=== PATIENT | female | born 1980 ===

== ENCOUNTER 2024-06-23 11:08 | Outpatient (AMB) | payer BC, SELFPAY ==
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
== END 2024-06-23 12:00 | disposition home or self-care (01) ==
PROVIDERS: Visit Provider Counselor Mental Health
DX: F43.22 Adjustment disorder with anxiety (principal); Z63.0 Problems in relationship with spouse or partner
CPT/HCPCS: 90791

== ENCOUNTER → 2024-06-23 11:08 | Outpatient (BNVA) | payer BC, SELFPAY | PROVIDERS: Visit Provider Counselor Mental Health ==

== ENCOUNTER 2024-06-29 10:31 | Outpatient (AMB) | payer BC, SELFPAY ==
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
--- NOTE | 2024-06-29 10:35 | MHC.OFFVISPS ---
Intake Intake Visit Reasons: (VIDEO) OP Therapy HPI- Psychiatric Chief Complaint: (VIDEO) OP Therapy Assessment and Plan Counseling and coordination of Care Details: I spent [] minutes reviewing the record, seeing the patient and documenting in the medical record. Counseling provided to the patient/caregiver as outlined below. Addressed patient/caregiver concerns regarding current medication regime including effective adherence. Addressed patient/caregiver concerns regarding diagnosis and prognosis including accuracy of diagnosis, prognosis over time, impact of diagnosis. Addressed patient/caregiver concerns regarding impact of recent stressors. Coding
== END 2024-06-29 11:00 | disposition home or self-care (01) ==
LOC: HO.HOP 10:31
PROVIDERS: Visit Provider Counselor Mental Health
DX: F43.22 Adjustment disorder with anxiety (principal); Z63.0 Problems in relationship with spouse or partner
CPT/HCPCS: 90837

== ENCOUNTER → 2024-06-29 10:31 | Outpatient (BNVA) | payer BC, SELFPAY | PROVIDERS: Visit Provider Counselor Mental Health ==

== ENCOUNTER 2024-07-13 10:14 | Outpatient (AMB) | payer BC, SELFPAY ==
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
== END 2024-07-13 11:00 | disposition home or self-care (01) ==
LOC: HO.HOP 10:14
PROVIDERS: Visit Provider Counselor Mental Health
DX: F43.22 Adjustment disorder with anxiety (principal); Z63.0 Problems in relationship with spouse or partner
CPT/HCPCS: 90837

== ENCOUNTER → 2024-07-13 10:14 | Outpatient (BNVA) | payer BC, SELFPAY | PROVIDERS: Visit Provider Counselor Mental Health ==

== ENCOUNTER → 2024-07-21 12:09 | Outpatient (AMB) | payer BC, SELFPAY ==
--- NOTE | 2024-07-21 12:10 | A.OFFWM_ITS ---
Intake Intake Visit Reasons: (OV) OP Therapy Behavioral Health Assessment Weight Management Therapy Therapy Notes Details Subjective: PT reports some anxiety symptoms but functioning well. Objective: PT presents for a follow up visit in person. Processed functioning and sources of stress. PT provided updates about separation process. Worked on grief and feelings triggered by ongoing family issues. Used CBT, CPT for Sx management and learning to cope with changes on her family. completed mindfulness Assessment/Response: * Mental status: anxious. sleep disturbance. Alert, oriented X3, engaged. * Risk reported/identified:None reported. PT open and active. She responded well to interventions. Assessment & Plan Assessment & Plan (1) Adjustment disorder with anxiety: Code(s): F43.22 - Adjustment disorder with anxiety (2) Problems in relationship with spouse or partner: Code(s): Z63.0 - Problems in relationship with spouse or partner Plan Follow up in 2 weeks in person. Advised to use stress-relief exercises and start working towards a soothing bedtime routine and possibly start using a gratitude journal or listening to a gratitude mindful meditation 2 times at day. Next christiano: 08/04/2024 - In person. Coding Level of Care Code Established Pt Psytx >53 mins (04177) Patient Type Established Diagnoses Adjustment disorder with anxiety F43.22 Problems in relationship with spouse or partner Z63.0 Time Spent (min) 60 Comment
== END ==
PROVIDERS: Visit Provider Counselor Mental Health
DX: F43.22 Adjustment disorder with anxiety (principal); Z63.0 Problems in relationship with spouse or partner
CPT/HCPCS: 90837

== ENCOUNTER → 2024-07-21 12:09 | Outpatient (BNVA) | payer BC, SELFPAY | PROVIDERS: Visit Provider Counselor Mental Health ==

== ENCOUNTER 2024-08-04 12:57 | Outpatient (AMB) | payer BC, SELFPAY ==
--- NOTE | 2024-08-04 12:00 | MHC.WMTHER ---
Intake Intake Visit Reasons: VIDEO OP Therapy Behavioral Health Assessment Weight Management Therapy Therapy Notes Details Subjective: PT reports she has been stressed but no significant changes have occur at home. Objective: PT presents for a follow up visit via Telehealth. Active listening, processed some of her concerns and used CBT-based techniques for Sx management. Session lasted 30 minutes total as we had several connection issues. Assessment/Response: Mental status: Anxious. Risk reported/identified: None PT was active and engaged in session. Plan: follow up in 2 weeks. Assessment & Plan Assessment & Plan (1) Adjustment disorder with anxiety: Code(s): F43.22 - Adjustment disorder with anxiety (2) Problems in relationship with spouse or partner: Code(s): Z63.0 - Problems in relationship with spouse or partner Plan Follow up in 2 weeks. Telehealth [facility] Location of provider rendering services: other Location of patient: address on file Patient Identification confirmed using: Name, : Yes Telehealth method: video Patient verbally consented to treatment: Yes Patient verbally consented to billing insurance company: Yes Patient informed of any privacy concerns related to visit: Yes Minutes spent on Phone/Video with Pt.: 30 Coding Level of Care Code Established Pt Tele Psytx 30 mins ([id number]) Patient Type Established Diagnoses Adjustment disorder with anxiety F43.22 Problems in relationship with spouse or partner Z63.0 Time Spent (min) 30
== END 2024-08-04 13:00 | disposition home or self-care (01) ==
LOC: HO.HOP 12:57
PROVIDERS: Visit Provider Counselor Mental Health
DX: F43.22 Adjustment disorder with anxiety (principal); Z63.0 Problems in relationship with spouse or partner
CPT/HCPCS: 90832

== ENCOUNTER → 2024-08-04 12:57 | Outpatient (BNVA) | payer BC, SELFPAY | PROVIDERS: Visit Provider Counselor Mental Health ==

== ENCOUNTER → 2024-08-18 13:49 | Outpatient (BNVA) | payer BC, SELFPAY | PROVIDERS: Visit Provider Counselor Mental Health ==

== ENCOUNTER → 2024-08-18 13:49 | Outpatient (AMB) | payer BC, SELFPAY ==
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
== END ==
LOC: HO.HOP 13:49
PROVIDERS: Visit Provider Counselor Mental Health
DX: F43.22 Adjustment disorder with anxiety (principal); Z63.0 Problems in relationship with spouse or partner
CPT/HCPCS: 90837

== ENCOUNTER → 2024-09-01 11:35 | Outpatient (AMB) | payer BC, SELFPAY ==
--- NOTE | 2024-09-01 12:00 | A.OFFWM_ITS ---
Intake Intake Visit Reasons: (OV) OP Therapy Behavioral Health Assessment Weight Management Therapy Therapy Notes Details Subjective: * Patient presents feeling somehow sad about her ongoing separation process. * Despite these feelings, the patient expresses awareness that the separation is ultimately the best decision for her. * She reports mixed emotions: sadness related to the end of the relationship, but also a sense of relief and clarity about the decision. Objective: PT presents for an follow up visit in-person. Patient appears engaged, though slightly downcast. Speech is clear and coherent, and she remains alert and oriented. No signs of acute distress, though some emotional discomfort is evident. Used Cognitive Behavioral Therapy (CBT) to explore the patient?s emotional responses and cognitive patterns regarding the separation. Explored coping strategies for managing emotional distress related to future transitions. Assessment/Response: * Mental status: Mild sadness with moderate emotional insight. The patient demonstrates an awareness of the benefits of the decision, despite emotional discomfort. * Risk reported/identified: None The patient is processing the separation with a balanced perspective, understanding the necessity of the decision but still feeling sadness related to the loss. Plan: Continue using CBT to challenge any unhelpful thoughts and cognitive distortions related to the separation. Focus on reframing sadness, validating the patient's emotions, and reinforcing her awareness of the positive aspects of her decision. Assessment & Plan Assessment & Plan (1) Adjustment disorder with anxiety: Code(s): F43.22 - Adjustment disorder with anxiety (2) Problems in relationship with spouse or partner: Code(s): Z63.0 - Problems in relationship with spouse or partner Plan Follow up in 2 weeks. Next christiano 09/15/2024 in person. Coding Level of Care Code Established Pt Psytx >53 mins ([id number]) Patient Type Established Diagnoses Adjustment disorder with anxiety F43.22 Problems in relationship with spouse or partner Z63.0 Time Spent (min) 60
== END ==
PROVIDERS: Visit Provider Counselor Mental Health
DX: F43.22 Adjustment disorder with anxiety (principal); Z63.0 Problems in relationship with spouse or partner
CPT/HCPCS: 90837

== ENCOUNTER → 2024-09-15 11:22 | Outpatient (BNVA) | payer BC, SELFPAY | PROVIDERS: Visit Provider Counselor Mental Health ==

== ENCOUNTER → 2024-09-15 11:22 | Outpatient (AMB) | payer BC, SELFPAY ==
--- NOTE | 2024-09-15 11:23 | A.OFFWM_ITS ---
Intake Intake Visit Reasons: (OV) OP Therapy Behavioral Health Assessment Weight Management Therapy Therapy Notes Details Subjective: Client reports ongoing tension with her partner as he attempts to buy her forgiveness through gifts. She feels these gestures are insufficient, focusing on material rather than emotional repair. Despite occasional confusion, the client remains committed to . She expresses feelings of being blamed and isolated, particularly in navigating the separation alone. The client also mentioned two significant events involving her 's family and her son overhearing a conversation about the separation, which have added to her emotional distress. Objective: The client presented for a follow-up visit in person. Active listening was utilized to discuss recent triggering events, her responses, and explore ways to cope more effectively. Feelings were validated and normalized. Cognitive Processing Therapy (CPT) techniques were employed to develop a coping plan. The client was encouraged to utilize natural supports and worked on enhancing communication skills to set boundaries with her and his family. Journaling or other self-reflective exercises were recommended to help the client stay connected to her own feelings. Coping strategies for managing doubts were also discussed. The client was provided with information about a family counseling practice that specializes in managing divorce-related challenges and delivering news to children, with a focus on working with the whole family. Assessment/Response: * Mental status: Client appears emotionally exhausted, with clear signs of distress related to ongoing relational issues. * Risk reported/identified: None The client continues to experience significant emotional strain due to relational conflict, feelings of isolation, and external pressures, especially involving her partner?s family and her son's reactions. Despite this, the client remains firm in her decision to separate. Occasional confusion appears linked to emotional fatigue and external stressors, including her partner's material attempts at reconciliation. Plan: -Continue using CPT to support coping st rategies and emotional processing. -Encourage regular journaling or self-re flection exercises. -Support development of stronger communi cation and boundary-setting skills. -Monitor emotional state and stress leve ls, especially regarding family dynamics. -Follow-up on the potential use of famil y counseling to help address divorce- related issues and facilitate communication with her children. Assessment & Plan Assessment & Plan (1) Adjustment disorder with anxiety: Code(s): F43.22 - Adjustment disorder with anxiety (2) Problems in relationship with spouse or partner: Code(s): Z63.0 - Problems in relationship with spouse or partner Plan Continue meeting on a bi-weekly basis. Sooner visits are available and have been offered to the client if needed. Next Appointment: 09/29/2024 at 11:00 AM, in person. Coding Level of Care Code Established Pt Tele Psytx 45 mins ([id number]) Patient Type Established Diagnoses Adjustment disorder with anxiety F43.22 Problems in relationship with spouse or partner Z63.0 Time Spent (min) 45 Comment Start: 11:22 am, End time:12:07
== END ==
LOC: HO.HOP 11:22
PROVIDERS: Visit Provider Counselor Mental Health
DX: F43.22 Adjustment disorder with anxiety (principal); Z63.0 Problems in relationship with spouse or partner
CPT/HCPCS: 90834

== ENCOUNTER 2024-09-29 11:35 | Outpatient (AMB) | payer BC, SELFPAY ==
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
== END 2024-09-29 15:01 | disposition home or self-care (01) ==
LOC: HO.HOP 11:35
PROVIDERS: Visit Provider Counselor Mental Health
DX: F43.22 Adjustment disorder with anxiety (principal); Z63.0 Problems in relationship with spouse or partner
CPT/HCPCS: 90837

== ENCOUNTER 2024-11-24 11:11 | Outpatient (AMB) | payer BC, SELFPAY ==
--- NOTE | 2024-11-24 11:11 | A.OFFWM_ITS ---
Intake Intake Visit Reasons: OV OP Therapy Behavioral Health Assessment Weight Management Therapy Therapy Notes Details Subjective: The patient reports that she has started [employer] classes as part of her personal and professional goals. She expresses pride in this accomplishment, noting it is an important step toward her growth. At home, things have been calm, though she mentions experiencing emotional ups and downs. PT is aware of her emotional fluctuations but struggles with managing them at times, especially when recalling past trauma. Objective: Used trauma-informed interventions during the session, validating the patient?s experiences and creating a safe space for her to express her emotions. Provided feedback on her achievements in starting [employer] classes, reinforcing her progress and encouraging further growth. Discussed emotional ups and downs, explored coping strategies for when difficult emotions arise, and emphasized the importance of self-compassion in dealing with emotional challenges. Assessment/Response: * Mental status:The patient was oriented and engaged, presenting with a stable mood overall. However, some emotional fluctuations were noted, especially when discussing past trauma. The patient showed insight into these emotional shifts and appeared open to further exploring these feelings in therapy. * Risk reported/identified: None Assessment & Plan Assessment & Plan (1) Adjustment disorder with anxiety: Code(s): F43.22 - Adjustment disorder with anxiety (2) Problems in relationship with spouse or partner: Code(s): Z63.0 - Problems in relationship with spouse or partner Plan - Continue providing talk therapy and trauma-informed interventions to help the patient explore and process her emotional ups and downs. - Focus on coping strategies for emotional regulation, helping the patient develop practical tools to manage fluctuations in mood. - Follow-up in 2 weeks. Next christiano: 12/08/2024 @11am, in person. Coding Level of Care Code Established Pt Tele Psytx 45 mins ([id number]) Patient Type Established Diagnoses Adjustment disorder with anxiety F43.22 Problems in relationship with spouse or partner Z63.0 Time Spent (min) 50
== END 2024-11-24 13:04 | disposition home or self-care (01) ==
PROVIDERS: Visit Provider Counselor Mental Health
DX: F43.22 Adjustment disorder with anxiety (principal); Z63.0 Problems in relationship with spouse or partner
CPT/HCPCS: 90834

== ENCOUNTER → 2024-11-24 11:11 | Outpatient (BNVA) | payer BC, SELFPAY | PROVIDERS: Visit Provider Counselor Mental Health ==

== ENCOUNTER 2024-12-22 11:01 | Outpatient (AMB) | payer BC, SELFPAY ==
--- NOTE | 2024-12-22 11:01 | A.OFFWM_ITS ---
Intake Intake Visit Reasons: OV OP Therapy Behavioral Health Assessment Weight Management Therapy Therapy Notes Details Subjective: The patient (PT) reports that she is preparing to submit divorce papers in the upcoming weeks. She expressed feelings of apprehension and acknowledges that she will need additional support during this time. PT feels that more frequent visits will be necessary to help her navigate the emotional challenges associated with the divorce process. Objective: PT presents for a f/up visit in person, she canceled last visit, so has not been seen in about 1 month. . Discussed functioning, progress and needs. Supportive listening and reflective feedback were provided throughout the session, offering validation of the patient's concerns and emotions. Cognitive Processing Therapy (CPT) interventions were utilized to help the patient reframe negative thoughts and manage the emotional distress surrounding the divorce. Focus was placed on processing any trauma related to the relationship and addressing how this might impact her mental health moving forward. Coping plan for difficult Sx and feelings was reviewed. Assessment/Response: * Mental status:The patient was alert, oriented, and engaged throughout the session. She appeared anxious and somewhat overwhelmed by the upcoming divorce, but she was able to express her feelings openly. Mood was slightly depressed, with some signs of stress, but PT demonstrated insight into her emotional state and the need for additional support. * Risk reported/identified: None PT responded well to interventions, modality seemed appropriate. She was active and engaged. Assessment & Plan Assessment & Plan (1) Adjustment disorder with anxiety: Code(s): F43.22 - Adjustment disorder with anxiety (2) Problems in relationship with spouse or partner: Code(s): Z63.0 - Problems in relationship with spouse or partner Plan -Continue using trauma-informed interventions, including CPT, to help the patient manage distressing thoughts and emotions tied to the divorce. -Focus on emotional regulation strategies, self-care, and coping mechanisms to support her through this transition with a focus on emotional resilience. F/up in 2 weeks. Next christiano: 01/05/2025 @11am, in person. Coding Level of Care Code Established Pt Tele Psytx >53 mins ([id number]) Patient Type Established Diagnoses Adjustment disorder with anxiety F43.22 Problems in relationship with spouse or partner Z63.0 Time Spent (min) 60
--- OUTSIDE RECORDS SUMMARY | 2024-12-22 12:45 | XMS_ITS | Patient Health Record ---
Author Organization [employer] Address [address] [place] [address] Care Team Providers Care Apprentice Technician Name Role Phone Migration, Provider Unavailable Unavailable Reason For Referral No Information Medications Medication SIG (Take, Route, Frequency, Duration) Notes Start Date End Date Status GNP Vitamin D Super Strength 5000 UNIT 1 PO daily Oral *Pick strength-form from [facility] for eRX* 12/17/2016 Active testosterone 2.25 mg SUBLINGUAL MAKENZIE 1 SL daily SUBLINGUAL *Reorder from [facility] for eRx and Interaction Alerts* 12/17/2016 Active CUFF TURNER Thyroid 30 MG 1 PO QAM Oral 12/17/2016 Active Encounters Encounter Location Date Provider Diagnosis Alondra Moises [facility] [address] [place], [place] [phone] 07/22/2024 Provider Migration Alondra Moises [facility] [address] [facility] [address] [place], [place] [phone] 07/23/2024 Provider Migration Plan Of Treatment No Information Insurance Providers Payer Name Payer Address Payer Phone Subscriber Number Group Number Insured Name Patient Relationship to Insured Coverage Start Date Coverage End Date [employer] [address] [place], [place] [id number] Nimo Desai Self - patient is the insured 5
--- OUTSIDE RECORDS SUMMARY | 2024-12-22 12:45 | XMS_ITS ---
Author Organization [employer] Address [address] [place] [address] Care Team Providers Care Cfo Name Role Phone Migration, Provider Unavailable Unavailable REASON FOR VISIT EMR-Chacho Encounters Encounter Location Date Provider Diagnosis [facility] [address] [facility] [address] [place], [place] [phone] 07/22/2024 Provider Migration Plan Of Treatment Medication Medication Name Sig Start Date Stop Date Notes Prometrium 200 MG insert 1 capsule by vaginal route every day for 3 months at bedtime Oral 01/27/2017 04/26/2017 Progress Notes * Nimo GARCIADOB: 0 (44 yo F)Acc No.[id number]:07/22/2024 Patient:?Nimo GARCIA :1980???Age:43 Y???Sex:Female Address:[address], [place], [address] * Refills? Stop Prometrium Capsule, 200 MG, Oral, 30, insert 1 capsule by vaginal route every day for 3 months at bedtime Subjective: * Chief Complaints: * ???EMR-Chacho * Medical History:? * Surgical History:? * Hospitalization/Major Diagno stic Procedure:? * Medications:? Objective: * Vitals:? * Physical Examination:? Assessment: Plan: * Treatment: * Procedure Codes:? * * Date:?
--- OUTSIDE RECORDS SUMMARY | 2024-12-22 12:45 | XMS_ITS ---
Author Organization [employer] Address [address] [facility] [address] [place] [address] Care Team Providers Care Orchid Hand Name Role Phone Migration, Provider Unavailable Unavailable REASON FOR VISIT EMR-Chacho Medications Medication SIG (Take, Route, Frequency, Duration) Notes Start Date End Date Status GNP Vitamin D Super Strength 5000 UNIT 1 PO daily Oral *Pick strength-form from [employer] As[employer] for eRX* 12/17/2016 Active testosterone 2.25 mg SUBLINGUAL MAKENZIE 1 SL daily SUBLINGUAL *Reorder from [employer] As[employer] for eRx and Interaction Alerts* 12/17/2016 Active CHORAL TEACHER Thyroid 30 MG 1 PO QAM Oral 12/17/2016 Active Encounters Encounter Location Date Provider Diagnosis [facility] [address] [facility] [address] [place], [place] [phone] 07/23/2024 Provider Migration Plan Of Treatment No Information Progress Notes * Nimo GARCIADOB: 0 (44 yo F)Acc No.[id number]:07/23/2024 Patient:?Nimo GARCIA :1980???Age:43 Y???Sex:Female Address:[address], [place], [address] Subjective: * Chief Complaints: * ???EMR-Chacho * Medical History:? * Jumpbasting Canvas Baster History:?Last PAP smear date:?Last pap smear?12/27/2016.?Cytology result:?normal per pt.?Infertility:?No.?PAP History?Have you ever had an abnormal Pap Smear?:Yes.?Gardasil?No.?Bladder or Kidney Infection?Have you had bladder or kidney infections??No.? * OB History:?Written Authoriz ation?:: Date: 01/19/2011 GA Weeks: 37 Sex: M Weight(lbs): [id number] Delivery Type: OB Problems: none Problems: healthy Living: Yes, P regnancy Date: 08/16/2015 GA Weeks: 37 Sex: M Weight(lbs): [id number] Delivery Type: OB Problems: none Problems: healthy Living: Yes .? * Surgical History:? * Hospitalization/Major Diagno stic Procedure:? * Family History:?Migrated Fam reddy History: : Cancer: pts grandpa, Diabetes: none, ASSOCIATE ACCOUNT MANAGER Problems: none, Heart Disease: pts grandma, Hyperlipidemia: [...] the time the baby is born? : Yes.? * Social History:?Tobacco Use:?Tobacco Use?Do you smoke??No.?Migrated Social History:?Migrated Social History: Alchohol: occasionally, Smoking: no, Diet: none, Drugs: none, Emotional Problems: none, Exercise: walking, Life Situation Chk: 0, PSE Abuse: feels safe at home,,Exposures :: Do you use tobacco?No ;Do you drink alcoholic beverages?No ;Please list any medications taken since your last period, including wgeb-obz-ejdxbit medications:spironlactone 100mg vitamin D 5000ius , ;Please [...] medications taken since your last period, including okev-fzo-czpjxla medications:spironlactone 100mg vitamin D 5000ius, ;Please list [...] ;Have you had an influenza (flu) vaccine?No. ???Drug/Alcohol:?Drugs?Have you used drugs other than those for medical reasons in the past 12 months??No.?Alcohol Use?Do you drink??No.?OB Social History:?Please list any medications taken since your last period, including over the counter medications: spironlactone 100mg vitamin D 5000ius. Do you work with chemicals or radiation?: No. Are you on a special diet?: No. Do you have cats?: No. Have you had an influenza (flu) vaccine?: No. Do you have any reason to believe you may have been exposed to AIDS?: No. * Medications:?TakingNP Thyroi d 30 MG Tablet 1 PO QAM Oral GNP Vitamin D Super Strength 5000 UNIT Tablet 1 PO daily Oral , Notes to Pharmacist: *Pick strength-form from [employer] for eRX*testosterone 2.25 mg SUBLINGUAL MAKENZIE MAKENZIE 1 SL daily SUBLINGUAL , Notes to Pharmacist: *Reorder from [employer] for eRx and Interaction Alerts*Taking CHORAL TEACHER Thyroid 30 MG Tablet 1 PO QAM Oral Taking GNP Vitamin D Super Strength 5000 UNIT Tablet 1 PO daily Oral , Notes to Pharmacist: *Pick strength-form from [employer] for eRX*Taking testosterone 2.25 mg SUBLINGUAL MAKENZIE MAKENZIE 1 SL daily SUBLINGUAL , Notes to Pharmacist: *Reorder from [employer] Asiaan for eRx and Interaction Alerts* Objective: * Vitals:? * Physical Examination:? Assessment: Plan: * Treatment: * Procedure Codes:? * * Date:?
== END 2024-12-22 13:08 | disposition home or self-care (01) ==
PROVIDERS: Visit Provider Counselor Mental Health
DX: F43.22 Adjustment disorder with anxiety (principal); Z63.0 Problems in relationship with spouse or partner
CPT/HCPCS: 90837

== ENCOUNTER → 2024-12-22 11:01 | Outpatient (BNVA) | payer BC, SELFPAY | PROVIDERS: Visit Provider Counselor Mental Health ==

== ENCOUNTER 2025-01-05 11:02 | Outpatient (AMB) | payer BC, SELFPAY ==
--- NOTE | 2025-01-05 11:02 | A.OFFWM_ITS ---
Intake Intake Visit Reasons: OV OP Therapy Behavioral Health Assessment Weight Management Therapy Therapy Notes Details Subjective: The patient presents feeling very stressed after submitting all the paperwork to proceed with her divorce. She expresses fear about her 's potential reaction, particularly given their past negative experiences. PT reports difficulties with sleep, feeling constantly worried and tense. She inquired about techniques to manage flashbacks and memories related to past traumatic events during her marriage. PT is seeking strategies to stay grounded and calm during emotional triggers. Objective: PT presents for a follow-up visit conducted in person. During the session, trauma-informed techniques were used to address emotional distress, focusing on grounding exercises and emotional regulation strategies. Provided psychoeducation on managing flashbacks and intrusive memories, incorporating mindfulness and cognitive processing therapy (CPT) interventions. Mindfullness technique was implemented to support with current level of anxiety. Assessment/Response: * Mental Status: The patient appeared sensitive, tearful, and anxious during the session. She was able to articulate her fears and emotional struggles regarding the divorce process. Although emotionally distressed, PT demonstrated good insight into her emotional state and was open to exploring coping strategies. * Risk Reported/Identified: No immediate safety concerns were identified. PT denied suicidal ideation, self-harm, or harm to others. Emotional distress was noted but did not indicate acute risk. Assessment & Plan Assessment & Plan (1) Adjustment disorder with anxiety: Code(s): F43.22 - Adjustment disorder with anxiety (2) Problems in relationship with spouse or partner: Code(s): Z63.0 - Problems in relationship with spouse or partner Plan -We will continue utilizing CPT interventions to address trauma-related memories and reframe negative thoughts. -Incorporate mindfulness and grounding techniques, such as deep breathing, body scans, and visualization, to help manage flashbacks and stay present in the moment. - Continue the focus on emotional regulation strategies to help the patient cope with feelings of anxiety and fear as she navigates the divorce process. - F/up in 2 weeks. Next christiano: 01/26/2025, 11am, in person. Coding Level of Care Code Established Pt Psytx >53 mins (21880) Patient Type Established Diagnoses Adjustment disorder with anxiety F43.22 Problems in relationship with spouse or partner Z63.0 Time Spent (min) 70
--- OUTSIDE RECORDS SUMMARY | 2025-01-05 12:42 | XMS_ITS | Patient Health Record ---
Author Organization [employer] Address [address] [facility] [address] [place] [address] Care Team Providers Care Pure Pak Machine Operator Name Role Phone Migration, Provider Unavailable Unavailable Reason For Referral No Information Medications Medication SIG (Take, Route, Frequency, Duration) Notes Start Date End Date Status GNP Vitamin D Super Strength 5000 UNIT 1 PO daily Oral *Pick strength-form from [employer] for eRX* 12/17/2016 Active testosterone 2.25 mg SUBLINGUAL MAKENZIE 1 SL daily SUBLINGUAL *[facility] from [facility] for eRx and Interaction Alerts* 12/17/2016 Active DIRECTOR MARKET RESEARCH Thyroid 30 MG 1 PO QAM Oral 12/17/2016 Active Encounters Encounter Location Date Provider Diagnosis Alondra Moises [facility] [place] [address] [facility] [address] [place], [place] [phone] 07/22/2024 Provider Migration Alondra Moises [facility] [address] [facility] [address] [place], [place] [phone] 07/23/2024 Provider Migration Plan Of Treatment No Information Insurance Providers Payer Name Payer Address Payer Phone Subscriber Number Group Number Insured Name Patient Relationship to Insured Coverage Start Date Coverage End Date [employer] [address] [place], [place] [id number] Nimo Desai Self - patient is the insured 5
--- OUTSIDE RECORDS SUMMARY | 2025-01-05 12:42 | XMS_ITS ---
Author Organization [employer] Address [address] [facility] [address] [place] [address] Care Team Providers Care High Lift Mule Operator Name Role Phone Migration, Provider Unavailable Unavailable REASON FOR VISIT EMR-Chacho Encounters Encounter Location Date Provider Diagnosis [facility] [address] [facility] [address] [place], [place] [phone] 07/22/2024 Provider Migration Plan Of Treatment Medication Medication Name Sig Start Date Stop Date Notes Prometrium 200 MG insert 1 capsule by vaginal route every day for 3 months at bedtime Oral 01/27/2017 04/26/2017 Progress Notes * Nimo GARCIADOB: 0 (44 yo F)Acc No.[id number]:07/22/2024 Patient:?Nimo GARCIA :1980???Age:43 Y???Sex:Female Address:[address], [place], [address] * Refills? Stop Prometrium Capsule, 200 MG, [...]
--- OUTSIDE RECORDS SUMMARY | 2025-01-05 12:42 | XMS_ITS ---
Author Organization [employer] Address [address] [facility] [address] [place] [address] Care Team Providers Care Accounts Officer Name Role Phone Migration, Provider Unavailable Unavailable REASON FOR VISIT EMR-Chacho Medications Medication SIG (Take, Route, Frequency, Duration) Notes Start Date End Date Status GNP Vitamin D Super Strength 5000 UNIT 1 PO daily Oral *Pick strength-form from [employer] for eRX* 12/17/2016 Active testosterone 2.25 mg SUBLINGUAL MAKENZIE 1 SL daily SUBLINGUAL *Reorder from [employer] for eRx and Interaction Alerts* 12/17/2016 Active DIRECTOR WATER AND WASTE SERVICES Thyroid 30 MG 1 PO QAM Oral 12/17/2016 Active Encounters Encounter Location Date Provider Diagnosis [facility] [address] [facility] [address] [place], [place] [phone] 07/23/2024 Provider Migration Plan Of Treatment No Information Progress Notes * Nimo GARCIADOB: 0 (44 yo F)Acc No.[id number]:07/23/2024 Patient:?Nimo GARCIA :1980???Age:43 Y???Sex:Female Address:[address], [place], [address] Subjective: * Chief Complaints: * ???EMR-Chacho * Medical History:? 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 * OB History:?Written Authoriz ation?:: Date: 01/19/2011 GA Weeks: 37 Sex: M Weight(lbs): [id number] Delivery Type: OB Problems: none Problems: healthy Living: Yes, P regnancy Date: 08/16/2015 GA Weeks: 37 Sex: M Weight(lbs): 1zwz96on Delivery Type: OB Problems: none Problems: healthy Living: Yes .? * Surgical History:? * Hospitalization/Major Diagno stic Procedure:? * Family History:?Migrated Fam reddy History: : Cancer: pts grandpa, Diabetes: none, SKEIN WINDER Problems: none, Heart Disease: pts grandma, Hyperlipidemia: [...] medications taken since your last period, including ajnj-nvr-wrscbux medications:spironlactone 100mg vitamin D 5000ius , ;Please [...] medications taken since your last period, including zdcx-slz-ngbjwht medications:spironlactone 100mg vitamin D 5000ius, ;Please list [...] , Notes to Pharmacist: *Pick strength-form from [employer] for eRX*testosterone 2.25 mg SUBLINGUAL MAKENZIE MAKENZIE 1 SL daily SUBLINGUAL , Notes to Pharmacist: *Reorder from [employer] for eRx and Interaction Alerts*Taking DIRECTOR WATER AND WASTE SERVICES Thyroid 30 MG Tablet 1 PO QAM Oral Taking GNP Vitamin D Super Strength 5000 UNIT Tablet 1 PO daily Oral , Notes to Pharmacist: *Pick strength-form from [employer] for eRX*Taking testosterone 2.25 mg SUBLINGUAL MAKENZIE MAKENZIE 1 SL daily SUBLINGUAL , Notes to Pharmacist: *Reorder from Adometry By Googlean for eRx and Interaction Alerts* Objective: * Vitals:? * Physical Examination:? Assessment: Plan: * Treatment: * Procedure Codes:? * * Date:?
== END 2025-01-05 13:56 | disposition home or self-care (01) ==
LOC: HO.HOP 11:02
PROVIDERS: Visit Provider Counselor Mental Health
DX: F43.22 Adjustment disorder with anxiety (principal); Z63.0 Problems in relationship with spouse or partner
CPT/HCPCS: 90837

== ENCOUNTER 2025-01-26 11:00 | Outpatient (AMB) | payer BC, SELFPAY ==
--- NOTE | 2025-01-26 11:15 | A.OFFWM_ITS ---
Intake Intake Visit Reasons: OV OP Therapy Behavioral Health Assessment Weight Management Therapy Therapy Notes Details Subjective: PT presents feeling some stress around dynamics at home. Reports she has been using her natural supports (sisters, friends) to manage stress. Not sleeping well. Managing better flashbacks and trying to use grounding exercises daily for anxiety. 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 Objective: PT presents for an in-person visit. Supportive and reflective listening implemented to process currently functioning, family dynamics and Sx management. Reflected on recent situations at home, and responses to these. Reviewed coping skills and ways to reframe unhealthy mental responses for a more confident self-talk. USed CBT and CPT techniques for Sx management. Assessment/Response: * Mental status: Anxious but better management of these Sx. Alert, oriented, talkative. Good functioning and insight. * Risk reported/identified: none. Assessment & Plan Assessment & Plan (1) Adjustment disorder with anxiety: Code(s): F43.22 - Adjustment disorder with anxiety (2) Problems in relationship with spouse or partner: Code(s): Z63.0 - Problems in relationship with spouse or partner Plan Continue bi-weekly visits. Provided with a tapping exercise to implement and address anxiety and negative/catastrophic thinking due to past traumatic events. Next christiano: 02/08/2025 - Telehealth. Coding Level of Care Code Established Pt Tele Psytx >53 mins (33760) Patient Type Established Diagnoses Adjustment disorder with anxiety F43.22 Problems in relationship with spouse or partner Z63.0 Time Spent (min) 60
--- OUTSIDE RECORDS SUMMARY | 2025-01-26 13:18 | XMS_ITS ---
Author Organization [employer] Address [address] [facility] [address] [place] [address] Care Team Providers Care C D Area Supervisor Name Role Phone Migration, Provider Unavailable Unavailable REASON FOR VISIT EMR-Chacho Encounters Encounter Location Date Provider Diagnosis [place] [facility] [address] [facility] [address] [facility] [address] [place], [place] [phone] 07/22/2024 Provider Migration Plan Of Treatment Medication Medication Name Sig Start Date Stop Date Notes Prometrium 200 MG insert 1 capsule by vaginal route every day for 3 months at bedtime Oral 01/27/2017 04/26/2017 Progress Notes * Nimo GARCIADOB: 0 (44 yo F)Acc No.[id number]:07/22/2024 Patient:?Nimo GARCIA :1980???Age:43 Y???Sex:Female Address:[address], [place] [address] * Refills? Stop Prometrium Capsule, 200 MG, [...]
--- OUTSIDE RECORDS SUMMARY | 2025-01-26 13:18 | XMS_ITS ---
Author Organization [employer] Address [address] [facility] [address] [place] [address] Care Team Providers Care Pot Annealer Name Role Phone Migration, Provider Unavailable Unavailable REASON FOR VISIT EMR-Chacho Medications Medication SIG (Take, Route, Frequency, Duration) Notes Start Date End Date Status GNP Vitamin D Super Strength 5000 UNIT 1 PO daily Oral *Pick strength-form from [employer] for eRX* 12/17/2016 Active testosterone 2.25 mg SUBLINGUAL MAKENZIE 1 SL daily SUBLINGUAL *Reorder from [employer] for eRx and Interaction Alerts* 12/17/2016 Active PLANT SPECIALIST Thyroid 30 MG 1 PO QAM Oral 12/17/2016 Active Encounters Encounter Location Date Provider Diagnosis [facility] [address] [facility] [address] [place], [place] [phone] 07/23/2024 Provider Migration Plan Of Treatment No Information Progress Notes * iNmo GARCIADOB: 0 (44 yo F)Acc No.[id number]:07/23/2024 Patient:?Nimo GARCIA :1980???Age:43 Y???Sex:Female Address:[address], [place], [address] Subjective: * Chief Complaints: * ???EMR-Chacho * Medical History:? 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 * OB History:?Written Authoriz ation?:: Date: 01/19/2011 GA Weeks: 37 Sex: M Weight(lbs): [id number] Delivery Type: OB Problems: none Problems: healthy Living: Yes, P regnancy Date: 08/16/2015 GA Weeks: 37 Sex: M Weight(lbs): [id number] Delivery Type: OB Problems: none Problems: healthy Living: Yes .? * Surgical History:? * Hospitalization/Major Diagno stic Procedure:? * Family History:?Migrated Fam reddy History: : Cancer: pts grandpa, Diabetes: none, OPERATIONS EXECUTIVE Problems: none, Heart Disease: pts grandma, Hyperlipidemia: [...] medications taken since your last period, including farp-bne-vjugbqs medications:spironlactone 100mg vitamin D 5000ius , ;Please [...] medications taken since your last period, including epcn-kdg-xonheyi medications:spironlactone 100mg vitamin D 5000ius, ;Please list [...] , Notes to Pharmacist: *Pick strength-form from Remote Assistant for eRX*testosterone 2.25 mg SUBLINGUAL MAKENZIE MAKENZIE 1 SL daily SUBLINGUAL , Notes to Pharmacist: *Reorder from Remote Assistant for eRx and Interaction Alerts*Taking PLANT SPECIALIST Thyroid 30 MG Tablet 1 PO QAM Oral Taking GNP Vitamin D Super Strength 5000 UNIT Tablet 1 PO daily Oral , Notes to Pharmacist: *Pick strength-form from Remote Assistant for eRX*Taking testosterone 2.25 mg SUBLINGUAL MAKENZIE MAKENZIE 1 SL daily SUBLINGUAL , Notes to Pharmacist: *Reorder from [employer] for eRx and Interaction Alerts* Objective: * Vitals:? * Physical Examination:? Assessment: Plan: * Treatment: * Procedure Codes:? * * Date:?
--- OUTSIDE RECORDS SUMMARY | 2025-01-26 13:19 | XMS_ITS | Patient Health Record ---
Author Organization [employer] Address [address] [facility] [address] [place] [address] Care Team Providers Care Tours Captain Name Role Phone Migration, Provider Unavailable Unavailable Reason For Referral No Information Medications Medication SIG (Take, Route, Frequency, Duration) Notes Start Date End Date Status GNP Vitamin D Super Strength 5000 UNIT 1 PO daily Oral *Pick strength-form from [employer] for eRX* 12/17/2016 Active testosterone 2.25 mg SUBLINGUAL MAKENZIE 1 SL daily SUBLINGUAL *Reorder from [employer] for eRx and Interaction Alerts* 12/17/2016 Active MANAGER OF SUSTAINABILITY Thyroid 30 MG 1 PO QAM Oral 12/17/2016 Active Encounters Encounter Location Date Provider Diagnosis Alondra Moises [facility] [address] [facility] [address] [place], [place] [phone] 07/22/2024 Provider Migration Alondra Moises [facility] [address] [facility] [address] [place], [place] [phone] 07/23/2024 Provider Migration Plan Of Treatment No Information Insurance Providers Payer Name Payer Address Payer Phone Subscriber Number Group Number Insured Name Patient Relationship to Insured Coverage Start Date Coverage End Date [employer] [address] [place], [place] [id number] Nimo Desai Self - patient is the insured 5
== END 2025-01-26 12:20 | disposition home or self-care (01) ==
LOC: HO.HOP 11:22
PROVIDERS: Visit Provider Counselor Mental Health
DX: F43.22 Adjustment disorder with anxiety (principal); Z63.0 Problems in relationship with spouse or partner
CPT/HCPCS: 90837

== ENCOUNTER → 2025-01-26 11:00 | Outpatient (BNVA) | payer BC, SELFPAY | PROVIDERS: Visit Provider Counselor Mental Health ==

== ENCOUNTER 2025-02-08 09:12 | Outpatient (AMB) | payer BC, SELFPAY ==
--- NOTE | 2025-02-08 09:00 | MHC.WMTHER ---
Intake Intake Visit Reasons: TV OP Therapy Behavioral Health Assessment Weight Management Therapy Therapy Notes Details Subjective: Patient reports she has directly informed her about the divorce, but observes that he appears to be in denial. She states feeling less anxious during conversations with him, including discussions about finances. Additionally, the patient reports becoming more proactive in engaging with her son's providers and fostering communication among them, especially as her has declined to participate in the past. She notes increased concerns regarding her oldest son, who is currently facing more challenges at school. Objective: PT presents for a f/up visit via Telehealth. . Discussed patient?s functioning, challenges, and progress related to stress and emotional regulation. Processed various family dynamics contributing to stress, particularly situations where the patient feels manipulated or labeled as ?the bad parent.? Explored instances of perceived psychological manipulation, and reflected on supporting evidence. Patient shared feedback from friends and contrasted it with her 's reactions, which at times lead her to question herself. Focused on building self-confidence and validating/normalizing her emotional experiences. CPT-based interventions were utilized during the session. Assessment/Response: Mental status: trauma-re sx such as anxiety, nervous, not sleeping well. She was oriented x3, alert and engaged. Also responded well to interventions and despite current Sx she has a good functioning. Risk reported/identified: None. Assessment & Plan Assessment & Plan (1) Adjustment disorder with anxiety: Code(s): F43.22 - Adjustment disorder with anxiety (2) Problems in relationship with spouse or partner: Code(s): Z63.0 - Problems in relationship with spouse or partner Plan Continue meeting every 1-2 weeks and implementing CPT and CBT tecniques to process ongoing adjustments, stress and tension in the household. Next christiano: 02/16/2025 Telehealth Telehealth Telehealth Platform: [employer] Location of provider rendering services: other ([place] [address]) Location of patient: address on file Patient Identification confirmed using: Name, : Yes Telehealth method: video Patient verbally consented to treatment: Yes Patient verbally consented to billing insurance company: Yes Patient informed of any privacy concerns related to visit: Yes Minutes spent on Phone/Video with Pt.: 60 Coding Level of Care Code Established Pt Tele Psytx >53 mins (26300) Patient Type Established Diagnoses Adjustment disorder with anxiety F43.22 Problems in relationship with spouse or partner Z63.0 Time Spent (min) 60
--- OUTSIDE RECORDS SUMMARY | 2025-02-08 10:12 | XMS_ITS ---
Author Organization [employer] Address [address] [facility] [address] [place] [address] Care Team Providers Care Solution Coordinator Name Role Phone Migration, Provider Unavailable Unavailable REASON FOR VISIT EMR-Chacho Medications Medication SIG (Take, Route, Frequency, Duration) Notes Start Date End Date Status GNP Vitamin D Super Strength 5000 UNIT 1 PO daily Oral *Pick strength-form from [employer] for eRX* 12/17/2016 Active testosterone 2.25 mg SUBLINGUAL MAKENZIE 1 SL daily SUBLINGUAL *Reorder from [employer] for eRx and Interaction Alerts* 12/17/2016 Active SHIPWRIGHT APPRENTICE Thyroid 30 MG 1 PO QAM Oral 12/17/2016 Active Encounters Encounter Location Date Provider Diagnosis [facility] [address] [facility] [address] [place], [place] [phone] 07/23/2024 Provider Migration Plan Of Treatment No Information Progress Notes * Nimo GARCIADOB: 0 (44 yo F)Acc No.[id number]:07/23/2024 Patient:?Nimo GARCIA :1980???Age:43 Y???Sex:Female Address:[address], [place], [address] Subjective: * Chief Complaints: * ???EMR-Chacho * Medical History:? 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 * OB History:?Written Authoriz ation?:: Date: 01/19/2011 GA Weeks: 37 Sex: M Weight(lbs): [id number] Delivery Type: OB Problems: none Problems: healthy Living: Yes, P regnancy Date: 08/16/2015 GA Weeks: 37 Sex: M Weight(lbs): [id number] Delivery Type: OB Problems: none Problems: healthy Living: Yes .? * Surgical History:? * Hospitalization/Major Diagno stic Procedure:? * Family History:?Migrated Fam reddy History: : Cancer: pts grandpa, Diabetes: none, PRODUCTION MECHANIC Problems: none, Heart Disease: pts grandma, Hyperlipidemia: [...] medications taken since your last period, including bxed-nat-fasbxth medications:spironlactone 100mg vitamin D 5000ius , ;Please [...] medications taken since your last period, including kqat-lmx-zggqktr medications:spironlactone 100mg vitamin D 5000ius, ;Please list [...] , Notes to Pharmacist: *Pick strength-form from [employer] for eRX*testosterone 2.25 mg SUBLINGUAL MAKENZIE MAKENZIE 1 SL daily SUBLINGUAL , Notes to Pharmacist: *Reorder from [employer] for eRx and Interaction Alerts*Taking SHIPWRIGHT APPRENTICE Thyroid 30 MG Tablet 1 PO QAM Oral Taking GNP Vitamin D Super Strength 5000 UNIT Tablet 1 PO daily Oral , Notes to Pharmacist: *Pick strength-form from [employer] for eRX*Taking testosterone 2.25 mg SUBLINGUAL MAKENZIE MAKENZIE 1 SL daily SUBLINGUAL , Notes to Pharmacist: *Reorder from [employer] for eRx and Interaction Alerts* Objective: * Vitals:? * Physical Examination:? Assessment: Plan: * Treatment: * Procedure Codes:? * * Date:?
--- OUTSIDE RECORDS SUMMARY | 2025-02-08 10:12 | XMS_ITS ---
Author Organization [employer] Address [address] [facility] [address] [place] [address] Care Team Providers Care Landscaper Name Role Phone Migration, Provider Unavailable Unavailable REASON FOR VISIT EMR-Chacho Encounters Encounter Location Date Provider Diagnosis [facility] [address] [facility] [facility] [address] [place], [place] [phone] 07/22/2024 Provider Migration Plan Of Treatment Medication Medication Name Sig Start Date Stop Date Notes Prometrium 200 MG insert 1 capsule by vaginal route every day for 3 months at bedtime Oral 01/27/2017 04/26/2017 Progress Notes * Nimo GARCIADOB: 0 (44 yo F)Acc No.[id number]:07/22/2024 Patient:?Nimo GARCIA :1980???Age:43 Y???Sex:Female Address:[address], [place] [address] * Refills? Stop Prometrium Capsule, 200 MG, [...]
--- OUTSIDE RECORDS SUMMARY | 2025-02-08 10:13 | XMS_ITS | Patient Health Record ---
Author Organization [employer] Address [address] [facility] [address] [place] [address] Care Team Providers Care Cook Dessert Name Role Phone Migration, Provider Unavailable Unavailable Reason For Referral No Information Medications Medication SIG (Take, Route, Frequency, Duration) Notes Start Date End Date Status GNP Vitamin D Super Strength 5000 UNIT 1 PO daily Oral *Pick strength-form from [employer] for eRX* 12/17/2016 Active testosterone 2.25 mg SUBLINGUAL MAKENZIE 1 SL daily SUBLINGUAL *[facility]order from [facility] for eRx and Interaction Alerts* 12/17/2016 Active BAKERY CHEF Thyroid 30 MG 1 PO QAM Oral 12/17/2016 Active Encounters Encounter Location Date Provider Diagnosis Alondra Moises [facility] [address] [facility] [address] [place], [place] [phone] 07/22/2024 Provider Migration Alondra Moises [facility] [address] [facility] [address] [place], [place] [phone] 07/23/2024 Provider Migration Plan Of Treatment No Information Insurance Providers Payer Name Payer Address Payer Phone Subscriber Number Group Number Insured Name Patient Relationship to Insured Coverage Start Date Coverage End Date [employer] [address] [id number] Nimo Desai Self - patient is the insured 5
== END 2025-02-08 10:15 | disposition home or self-care (01) ==
LOC: HO.HOP 09:12
PROVIDERS: Visit Provider Counselor Mental Health
DX: F43.22 Adjustment disorder with anxiety (principal); Z63.0 Problems in relationship with spouse or partner
CPT/HCPCS: 90837

== ENCOUNTER → 2025-02-08 09:12 | Outpatient (BNVA) | payer BC, SELFPAY | PROVIDERS: Visit Provider Counselor Mental Health ==

== ENCOUNTER 2025-03-08 11:01 | Outpatient (AMB) | payer BC, SELFPAY ==
--- NOTE | 2025-03-08 11:05 | A.OFFWM_ITS ---
Intake Intake Visit Reasons: OV OP Therapy Behavioral Health Assessment Weight Management Therapy Therapy Notes Details Subjective: The patient reports increased tension and anxiety related to her ongoing divorce process. While divorce papers have been submitted, her has not yet been notified, which is contributing to her emotional distress. She has been utilizing natural supports, primarily talking with her sisters and two close friends, and is making efforts to maintain a consistent routine at home with her children. The patient has also been implementing previously discussed anxiety and stress management techniques with moderate success. Objective: PT presents for an in follow up therapy in-person visit. . The patient reflected on recent developments in her separation process, sharing that divorce papers have been submitted, though her has not yet been notified. She reported feeling tense and anxious, but continues to function well at home, maintaining routine with her children and leaning on natural supports (sisters and close friends). We discussed ongoing emotional challenges, including uncertainty, fear, and grief, as well as her progress in coping. Interventions used included reflective listening, validation and normalization of feelings, and Cognitive Processing Therapy (CPT) techniques to explore thoughts around self-worth and responsibility. In-session strategies also included 5-4-3-2-1 grounding, box breathing for anxiety regulation, and a values-based journaling prompt to reconnect with core priorities. The patient was receptive and engaged, expressing interest in continuing these practices. Assessment/Response: * Mental status: mild tension and anxiety. denies feeling depressed, mood congruent. Alert, oriented x3, engaged and coperative. Good functioning. * Risk reported/identified: None. Assessment & Plan Assessment & Plan (1) Adjustment disorder with anxiety: Code(s): F43.22 - Adjustment disorder with anxiety (2) Problems in relationship with spouse or partner: Code(s): Z63.0 - Problems in relationship with spouse or partner Plan The patient was encouraged to continue practicing the coping strategies introduced in session today, including grounding, breathwork, and values-based reflection. A follow-up appointment is scheduled in two weeks to assess progress and provide continued support. Next appointment: March 22, 2025, at 1:00 PM (in person). Coding Level of Care Code Established Pt Tele Psytx >53 mins (05979) Patient Type Established Diagnoses Adjustment disorder with anxiety F43.22 Problems in relationship with spouse or partner Z63.0 Time Spent (min) 60
--- OUTSIDE RECORDS SUMMARY | 2025-03-08 12:14 | XMS_ITS | Patient Health Record ---
Author Organization [employer] Address [address] [facility] [address] [place] [address] Care Team Providers Care Naturopathic Oncology Provider Name Role Phone Migration, Provider Unavailable Unavailable Reason For Referral No Information Medications Medication SIG (Take, Route, Frequency, Duration) Notes Start Date End Date Status GNP Vitamin D Super Strength 5000 UNIT 1 PO daily Oral *Pick strength-form from [employer] for eRX* 12/17/2016 Active testosterone 2.25 mg SUBLINGUAL MAKENZIE 1 SL daily SUBLINGUAL *[facility] for [facility]Rx and Interaction Alerts* 12/17/2016 Active AMBULATORY SERVICE REPRESENTATIVE Thyroid 30 MG 1 PO QAM Oral 12/17/2016 Active Encounters Encounter Location Date Provider Diagnosis Alondra Moises [facility] [address] [facility] [address] [place], [place] [phone] 07/22/2024 Provider Migration Alondra Moises [facility] [address] [facility] [address] [place], [place] [phone] 07/23/2024 Provider Migration Plan Of Treatment No Information Insurance Providers Payer Name Payer Address Payer Phone Subscriber Number Group Number Insured Name Patient Relationship to Insured Coverage Start Date Coverage End Date [employer] [address] [place], [place] [id number] Nimo Desai Self - patient is the insured 5
--- OUTSIDE RECORDS SUMMARY | 2025-03-08 12:14 | XMS_ITS ---
Author Organization [employer] Address [address] [facility] [address] [place] [address] Care Team Providers Care Ceramic Engineering Professor Name Role Phone Migration, Provider Unavailable Unavailable REASON FOR VISIT EMR-Chacho Encounters Encounter Location Date Provider Diagnosis In [facility] [address] [facility] [address] [facility] [address] [place], [place] [phone] 07/22/2024 Provider Migration Plan Of Treatment Medication Medication Name Sig Start Date Stop Date Notes Prometrium 200 MG insert 1 capsule by vaginal route every day for 3 months at bedtime Oral 01/27/2017 04/26/2017 Progress Notes * Nimo GARCIADOB: 0 (44 yo F)Acc No.[id number]:07/22/2024 Patient:?Nimo GARCIA :1980???Age:43 Y???Sex:Female Address:[address], [place] [address] * Refills? Stop Prometrium Capsule, 200 MG, [...]
--- OUTSIDE RECORDS SUMMARY | 2025-03-08 12:14 | XMS_ITS ---
Author Organization [employer] Address [address] [facility] [address] [place] [address] Care Team Providers Care Dj Instructor Name Role Phone Migration, Provider Unavailable Unavailable REASON FOR VISIT EMR-Chacho Medications Medication SIG (Take, Route, Frequency, Duration) Notes Start Date End Date Status GNP Vitamin D Super Strength 5000 UNIT 1 PO daily Oral *Pick strength-form from [employer] for eRX* 12/17/2016 Active testosterone 2.25 mg SUBLINGUAL MAKENZIE 1 SL daily SUBLINGUAL *Reorder from [employer] for eRx and Interaction Alerts* 12/17/2016 Active CONTROL OFFICER Thyroid 30 MG 1 PO QAM Oral 12/17/2016 Active Encounters Encounter Location Date Provider Diagnosis [facility] [address] [facility] [address] [place], [place] [phone] 07/23/2024 Provider Migration Plan Of Treatment No Information Progress Notes * Nimo GARCIADOB: 0 (44 yo F)Acc No.[id number]:07/23/2024 Patient:?Nimo GARCIA :1980???Age:43 Y???Sex:Female Address:[address], [place], [address] Subjective: * Chief Complaints: * ???EMR-Chacho * Medical History:? 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 * OB History:?Written Authoriz ation?:: Date: 01/19/2011 GA Weeks: 37 Sex: M Weight(lbs): [id number] Delivery Type: OB Problems: none Problems: healthy Living: Yes, P regnancy Date: 08/16/2015 GA Weeks: 37 Sex: M Weight(lbs): [id number] Delivery Type: OB Problems: none Problems: healthy Living: Yes .? * Surgical History:? * Hospitalization/Major Diagno stic Procedure:? * Family History:?Migrated Fam reddy History: : Cancer: pts grandpa, Diabetes: none, BATTERY MECHANIC Problems: none, Heart Disease: pts grandma, [...] medications taken since your last period, including xdcs-giu-halyyng medications:spironlactone 100mg vitamin D 5000ius , ;Please [...] medications taken since your last period, including wqgd-izd-iyedxzt medications:spironlactone 100mg vitamin D 5000ius, ;Please list [...] , Notes to Pharmacist: *Pick strength-form from [employer] for eRX*testosterone 2.25 mg SUBLINGUAL MAKENZIE MAKENZIE 1 SL daily SUBLINGUAL , Notes to Pharmacist: *Reorder from [employer] for eRx and Interaction Alerts*Taking CONTROL OFFICER Thyroid 30 MG Tablet 1 PO QAM Oral Taking GNP Vitamin D Super Strength 5000 UNIT Tablet 1 PO daily Oral , Notes to Pharmacist: *Pick strength-form from [employer]What for eRX*Taking testosterone 2.25 mg SUBLINGUAL MAKENZIE MAKENZIE 1 SL daily SUBLINGUAL , Notes to Pharmacist: *Reorder from [employer] for eRx and Interaction Alerts* Objective: * Vitals:? * Physical Examination:? Assessment: Plan: * Treatment: * Procedure Codes:? * * Date:?
== END 2025-03-08 12:26 | disposition home or self-care (01) ==
LOC: HO.HOP 11:02
PROVIDERS: Visit Provider Counselor Mental Health
DX: F43.22 Adjustment disorder with anxiety (principal); Z63.0 Problems in relationship with spouse or partner
CPT/HCPCS: 90837

== ENCOUNTER → 2025-03-08 11:01 | Outpatient (BNVA) | payer BC, SELFPAY | PROVIDERS: Visit Provider Counselor Mental Health ==

== ENCOUNTER 2025-03-22 12:50 | Outpatient (AMB) | payer BC, SELFPAY ==
--- OUTSIDE RECORDS SUMMARY | 2025-03-22 12:54 | XMS_ITS ---
Author Organization [employer] Address [address] [facility] [address] [place] [address] Care Team Providers Care Flight Readiness Technician Name Role Phone Migration, Provider Unavailable Unavailable REASON FOR VISIT EMR-Chacho Medications Medication SIG (Take, Route, Frequency, Duration) Notes Start Date End Date Status GNP Vitamin D Super Strength 5000 UNIT 1 PO daily Oral *Pick strength-form from [employer] for eRX* 12/17/2016 Active testosterone 2.25 mg SUBLINGUAL MAKENZIE 1 SL daily SUBLINGUAL *Reorder from [employer] for eRx and Interaction Alerts* 12/17/2016 Active NITRO MAN Thyroid 30 MG 1 PO QAM Oral 12/17/2016 Active Encounters Encounter Location Date Provider Diagnosis [facility] [address] [facility] [address] [place], [place] [phone] 07/23/2024 Provider Migration Plan Of Treatment No Information Progress Notes * Nimo GARCIADOB: 0 (44 yo F)Acc No.[id number]:07/23/2024 Patient:?Nimo GARCIA :1980???Age:43 Y???Sex:Female Address:[address], [place], [address] Subjective: * Chief Complaints: * ???EMR-Chacho * Medical History:? * Quantity Surveyor History:?Last PAP smear date:?Last pap smear?12/27/2016.?Cytology result:?normal per pt.?Infertility:?No.?PAP History?Have you ever had an abnormal Pap Smear?:Yes.?Gardasil?No.?Bladder or Kidney Infection?Have you had bladder or kidney infections??No.? * OB History:?Written Authoriz ation?:: Date: 01/19/2011 GA Weeks: 37 Sex: M Weight(lbs): [id number] Delivery Type: OB Problems: none Problems: healthy Living: Yes, P regnancy Date: 08/16/2015 GA Weeks: 37 Sex: M Weight(lbs): [id number] Delivery Type: OB Problems: none Problems: healthy Living: Yes .? * Surgical History:? * Hospitalization/Major Diagno stic Procedure:? * Family History:?Migrated Fam reddy History: : Cancer: pts grandpa, Diabetes: none, TOP IRONER Problems: none, Heart Disease: pts grandma, Hyperlipidemia: [...] medications taken since your last period, including cjna-fpu-pykfibg medications:spironlactone 100mg vitamin D 5000ius , ;Please [...] medications taken since your last period, including vbon-vlc-nwnkfyl medications:spironlactone 100mg vitamin D 5000ius, ;Please list [...] , Notes to Pharmacist: *Pick strength-form from [facility] for eRX*testosterone 2.25 mg SUBLINGUAL MAKENZIE MAKENZIE 1 SL daily SUBLINGUAL , Notes to Pharmacist: *Reorder from [facility] for eRx and Interaction Alerts*Taking NITRO MAN Thyroid 30 MG Tablet 1 PO QAM Oral Taking GNP Vitamin D Super Strength 5000 UNIT Tablet 1 PO daily Oral , Notes to Pharmacist: *Pick strength-form from [facility] for eRX*Taking testosterone 2.25 mg SUBLINGUAL MAKENZIE MAKENZIE 1 SL daily SUBLINGUAL , Notes to Pharmacist: *Reorder from [employer] for eRx and Interaction Alerts* Objective: * Vitals:? * Physical Examination:? Assessment: Plan: * Treatment: * Procedure Codes:? * * Date:?
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
== END 2025-03-22 14:19 | disposition home or self-care (01) ==
LOC: HO.HOP 12:51
PROVIDERS: Visit Provider Counselor Mental Health
DX: F43.22 Adjustment disorder with anxiety (principal); Z63.0 Problems in relationship with spouse or partner
CPT/HCPCS: 90837

== ENCOUNTER → 2025-03-22 12:50 | Outpatient (BNVA) | payer BC, SELFPAY | PROVIDERS: Visit Provider Counselor Mental Health ==

== ENCOUNTER 2025-03-29 13:23 | Outpatient (AMB) | payer BC, SELFPAY ==
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
--- OUTSIDE RECORDS SUMMARY | 2025-03-29 15:47 | XMS_ITS ---
Author Organization [employer] Address [address] [facility] [address] [place] [address] Care Team Providers Care Insurance Sales Agent Name Role Phone Migration, Provider Unavailable Unavailable REASON FOR VISIT EMR-Chacho Medications Medication SIG (Take, Route, Frequency, Duration) Notes Start Date End Date Status GNP Vitamin D Super Strength 5000 UNIT 1 PO daily Oral *Pick strength-form from [employer] for eRX* 12/17/2016 Active testosterone 2.25 mg SUBLINGUAL MAKENZIE 1 SL daily SUBLINGUAL *Reorder from [employer] for eRx and Interaction Alerts* 12/17/2016 Active FINISHING TRIMMER Thyroid 30 MG 1 PO QAM Oral 12/17/2016 Active Encounters Encounter Location Date Provider Diagnosis [facility] [address] [facility] [address] [place], [place] [id number] 07/23/2024 Provider Migration Plan Of Treatment No Information Progress Notes * Nimo GARCIADOB: 0 (44 yo F)Acc No.[id number]:07/23/2024 Patient:?Nimo GARCIA :1980???Age:43 Y???Sex:Female Address:[address], [place], [address] Subjective: * Chief Complaints: * ???EMR-Chacho * Medical History:? 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 * OB History:?Written Authoriz ation?:: Date: 01/19/2011 GA Weeks: 37 Sex: M Weight(lbs): [id number] Delivery Type: OB Problems: none Problems: healthy Living: Yes, P regnancy Date: 08/16/2015 GA Weeks: 37 Sex: M Weight(lbs): [id number] Delivery Type: OB Problems: none Problems: healthy Living: Yes .? * Surgical History:? * Hospitalization/Major Diagno stic Procedure:? * Family History:?Migrated Fam reddy History: : Cancer: pts grandpa, Diabetes: none, OFF TRACK BETTING MANAGER Problems: none, Heart Disease: pts grandma, [...] medications taken since your last period, including lpyq-vlo-uqooopg medications:spironlactone 100mg vitamin D 5000ius , ;Please [...] medications taken since your last period, including xpbi-hpq-hvvcbev medications:spironlactone 100mg vitamin D 5000ius, ;Please list [...] , Notes to Pharmacist: *Pick strength-form from [employer] for eRX*testosterone 2.25 mg SUBLINGUAL MAKENZIE MAKENZIE 1 SL daily SUBLINGUAL , Notes to Pharmacist: *Reorder from [employer] for eRx and Interaction Alerts*Taking FINISHING TRIMMER Thyroid 30 MG Tablet 1 PO QAM Oral Taking GNP Vitamin D Super Strength 5000 UNIT Tablet 1 PO daily Oral , Notes to Pharmacist: *Pick strength-form from [employer] for eRX*Taking testosterone 2.25 mg SUBLINGUAL MAKENZIE MAKENZIE 1 SL daily SUBLINGUAL , Notes to Pharmacist: *Reorder from CanDiagan for eRx and Interaction Alerts* Objective: * Vitals:? * Physical Examination:? Assessment: Plan: * Treatment: * Procedure Codes:? * * Date:?
== END 2025-03-29 14:27 | disposition home or self-care (01) ==
LOC: HO.HOP 13:23
PROVIDERS: Visit Provider Counselor Mental Health
DX: F43.22 Adjustment disorder with anxiety (principal); Z63.0 Problems in relationship with spouse or partner
CPT/HCPCS: 90837

== ENCOUNTER 2025-04-06 11:02 | Outpatient (AMB) | payer BC, SELFPAY ==
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
--- OUTSIDE RECORDS SUMMARY | 2025-04-06 12:08 | XMS_ITS ---
Author Organization [employer] Address [address] [facility] [address] [place] [address] Care Team Providers Care Piano Refinisher Name Role Phone Migration, Provider Unavailable Unavailable REASON FOR VISIT EMR-Chacho Medications Medication SIG (Take, Route, Frequency, Duration) Notes Start Date End Date Status GNP Vitamin D Super Strength 5000 UNIT 1 PO daily Oral *Pick strength-form from [employer] for eRX* 12/17/2016 Active testosterone 2.25 mg SUBLINGUAL MAKENZIE 1 SL daily SUBLINGUAL *Reorder from [employer] for eRx and Interaction Alerts* 12/17/2016 Active SCIENTIST ENGINEER Thyroid 30 MG 1 PO QAM Oral 12/17/2016 Active Encounters Encounter Location Date Provider Diagnosis [facility] [address] [facility] [address] [place], [place] [phone] 07/23/2024 Provider Migration Plan Of Treatment No Information Progress Notes * Nimo GARCIADOB: 0 (44 yo F)Acc No.[id number]:07/23/2024 Patient:?Nimo GARCIA :1980???Age:43 Y???Sex:Female Address:[address], [place], [address] Subjective: * Chief Complaints: * ???EMR-Chacho * Medical History:? * Sand Tester History:?Last PAP smear date:?Last pap smear?12/27/2016.?Cytology result:?normal per pt.?Infertility:?No.?PAP History?Have you ever had an abnormal Pap Smear?:Yes.?Gardasil?No.?Bladder or Kidney Infection?Have you had bladder or kidney infections??No.? * OB History:?Written Authoriz ation?:: Date: 01/19/2011 GA Weeks: 37 Sex: M Weight(lbs): [id number] Delivery Type: OB Problems: none Problems: healthy Living: Yes, P regnancy Date: 08/16/2015 GA Weeks: 37 Sex: M Weight(lbs): [id number] Delivery Type: OB Problems: none Problems: healthy Living: Yes .? * Surgical History:? * Hospitalization/Major Diagno stic Procedure:? * Family History:?Migrated Fam reddy History: : Cancer: pts grandpa, Diabetes: none, ALIGNMENT SPECIALIST Problems: none, Heart Disease: pts grandma, [...] medications taken since your last period, including syia-rcn-tmeoltj medications:spironlactone 100mg vitamin D 5000ius , ;Please [...] medications taken since your last period, including iwoi-tqi-flkfbzm medications:spironlactone 100mg vitamin D 5000ius, ;Please list [...] , Notes to Pharmacist: *Pick strength-form from [employer] for eRX*testosterone 2.25 mg SUBLINGUAL MAKENZIE MAKENZIE 1 SL daily SUBLINGUAL , Notes to Pharmacist: *Reorder from [employer] for eRx and Interaction Alerts*Taking SCIENTIST ENGINEER Thyroid 30 MG Tablet 1 PO QAM Oral Taking GNP Vitamin D Super Strength 5000 UNIT Tablet 1 PO daily Oral , Notes to Pharmacist: *Pick strength-form from [employer] for eRX*Taking testosterone 2.25 mg SUBLINGUAL MAKENZIE MAKENZIE 1 SL daily SUBLINGUAL , Notes to Pharmacist: *Reorder from [employer]an for eRx and Interaction Alerts* Objective: * Vitals:? * Physical Examination:? Assessment: Plan: * Treatment: * Procedure Codes:? * * Date:?
== END 2025-04-06 13:02 | disposition home or self-care (01) ==
LOC: HO.HOP 11:03
PROVIDERS: Visit Provider Counselor Mental Health
DX: F43.22 Adjustment disorder with anxiety (principal); Z63.0 Problems in relationship with spouse or partner
CPT/HCPCS: 90837

== ENCOUNTER → 2025-04-06 11:02 | Outpatient (BNVA) | payer BC, SELFPAY | PROVIDERS: Visit Provider Counselor Mental Health ==

== ENCOUNTER 2025-04-13 11:23 | Outpatient (AMB) | payer BC, SELFPAY ==
--- OUTSIDE RECORDS SUMMARY | 2024-07-23 05:00 | XMS_ITS ---
Author Organization [employer] Address [address] [facility] [address] [place] [address] Care Team Providers Care Supervisor Paper Products Name Role Phone Migration, Provider Unavailable Unavailable REASON FOR VISIT EMR-[facility] [place] Medications Medication SIG (Take, Route, Frequency, Duration) Notes Start Date End Date Status GNP Vitamin D Super Strength 5000 UNIT 1 PO daily Oral *Pick strength-form from [employer] for eRX* 12/17/2016 Active testosterone 2.25 mg SUBLINGUAL MAKENZIE 1 SL daily SUBLINGUAL *Reorder from [employer] for eRx and Interaction Alerts* 12/17/2016 Active ENGAGEMENT LEAD Thyroid 30 MG 1 PO QAM Oral 12/17/2016 Active Encounters Encounter Location Date Provider Diagnosis [facility] [address] [facility] [address] [place], [place] [id number] 07/23/2024 Provider Migration Plan Of Treatment No Information Progress Notes * Nimo GARCIADOB: 0 (44 yo F)Acc No.[id number]:07/23/2024 Patient: Nimo RITTER :1980 A ge:43 Y S ex:Female [address], [address] Subjective: * Chief Complaints: * E MR-Chacho * Medical History: * Crank Hand History: L ast PAP smear date: L [...] 01/19/2011 GA Weeks: 37 Sex: M Weight(lbs): 0abl2ba Delivery Type: OB Problems: none Problems: healthy Living: Yes, P regnancy Date: 08/16/2015 GA Weeks: 37 Sex: M Weight(lbs): 7vsu07ob Delivery Type: OB Problems: none Problems: healthy Living: Yes . * Surgical History: * Hospitalization/Major Diagno stic Procedure: * Family History: M igrated Family History: : Cancer: pts grandpa, Diabetes: none, LICENSED PSYCHOLOGIST Problems: none, Heart Disease: pts grandma, Hyperlipidemia: [...] medications taken since your last period, including inmo-rgn-gnadgor medications:spironlactone 100mg vitamin D 5000ius , ;Please [...] medications taken since your last period, including cvos-aky-ypncika medications:spironlactone 100mg vitamin D 5000ius, ;Please list [...] , Notes to Pharmacist: *[facility] from [facility] for eRX*testosterone 2.25 mg SUBLINGUAL MAKENZIE MAKENZIE 1 SL daily SUBLINGUAL , Notes to Pharmacist: *Reorder from [facility] for eRx and Interaction Alerts*Taking ENGAGEMENT LEAD Thyroid 30 MG Tablet 1 PO QAM Oral Taking GNP Vitamin D Super Strength 5000 UNIT Tablet 1 PO daily Oral , Notes to Pharmacist: *Pick strength-form from [employer] for eRX*Taking testosterone 2.25 mg SUBLINGUAL MAKENZIE MAKENZIE 1 SL daily SUBLINGUAL , Notes to Pharmacist: *Reorder from [facility] for eRx and Interaction Alerts* Objective: * Vitals: * Physical Examination: Assessment: Plan: * Treatment: * Procedure Codes: * * Date:
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
== END 2025-04-13 12:25 | disposition home or self-care (01) ==
LOC: HO.HBST 11:23
PROVIDERS: Visit Provider Counselor Mental Health
DX: F43.22 Adjustment disorder with anxiety (principal); Z63.0 Problems in relationship with spouse or partner
CPT/HCPCS: 90834

== ENCOUNTER 2025-04-24 13:08 | Outpatient (AMB) | payer BC, SELFPAY ==
--- OUTSIDE RECORDS SUMMARY | 2024-07-23 05:00 | XMS_ITS ---
Author Organization [employer] Address [address] [facility] [address] [place] [address] Care Team Providers Care Electronic Equipment Installer Name Role Phone Migration, Provider Unavailable Unavailable REASON FOR VISIT EMR-[facility] [place] Medications Medication SIG (Take, Route, Frequency, Duration) Notes Start Date End Date Status GNP Vitamin D Super Strength 5000 UNIT 1 PO daily Oral *Pick strength-form from [employer] for eRX* 12/17/2016 Active testosterone 2.25 mg SUBLINGUAL MAKENZIE 1 SL daily SUBLINGUAL *Reorder from [employer] for eRx and Interaction Alerts* 12/17/2016 Active PERCUSSION TUNER Thyroid 30 MG 1 PO QAM Oral 12/17/2016 Active Encounters Encounter Location Date Provider Diagnosis [facility] [address] [facility] [address] [place], [place] [phone] 07/23/2024 Provider Migration Plan Of Treatment No Information Progress Notes * Nimo GARCIADOB: 0 (44 yo F)Acc No.[id number]:07/23/2024 Patient: Nimo RITTER :1980 A ge:43 Y S ex:Female [address], [address] Subjective: * Chief Complaints: * E MR-Chacho * Medical History: * 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 C ytology result: n ormal per pt. I nfertility: N o. P AP History H ave you ever had an abnormal Pap Smear?:Yes. G ardasil N o. B ladder or Kidney Infection H ave you had bladder or kidney infections? N o. * OB History: [place] funes Authorization : : Date: 01/19/2011 GA Weeks: 37 Sex: M Weight(lbs): 0rrw1yy Delivery Type: OB Problems: none Problems: healthy Living: Yes, P regnancy Date: 08/16/2015 GA Weeks: 37 Sex: M Weight(lbs): 2nvz84sa Delivery Type: OB Problems: none Problems: healthy Living: Yes . * Surgical History: * Hospitalization/Major Diagno stic Procedure: * Family History: M igrated Family History: : Cancer: pts grandpa, Diabetes: none, REGIONAL SALES CONSULTANT Problems: none, Heart Disease: pts grandma, Hyperlipidemia: none, Hypertension: none, Father Living, Siblings Living#: 4, Siblings #: 0,Have either you or the baby's father had a child born with a defect? : No, Did either you or the baby's father have a defect yourselves? : No, Please describe any abnormaities that have occurred in your family or the father of the baby's family (for example, mental retardation, birh defects, deformities, or inherited diseasses like hemophilia, muscular dystrophy or crystic fibrois): none, If anyone in your family or the baby's father's family has: Bleeding Discorder: Yes, How is that person related to you? : self low platlets, Please list any other concerns you have about defects or inherited disorders : mri done iv contrast 1 month ago, Will you be 35 or older at the time the baby is born? : Yes. * Social History: T obacco Use: T obacco Use D o you smoke? N o. M igrated Social History: M igrated Social History: Alchohol: occasionally, Smoking: no, Diet: none, Drugs: none, Emotional Problems: none, Exercise: walking, Life Situation Chk: 0, PSE Abuse: feels safe at home,,Exposures :: Do you use tobacco?No ;Do you drink alcoholic beverages?No ;Please list any medications taken since your last period, including jgmo-hbb-cnojgwm medications:spironlactone 100mg vitamin D 5000ius , ;Please list any drugs used in the past(i.e. cocaine,marijuana,pain medication, meth, etc.):none, ;Do you have a history of blood transfusion, intravenous drug use, multiple sexual partners or sexual exposure to a falcon or bi-sexual male, exposure to an intravenous drug user, or have any other reason to believe you may have been exposed to AIDS?none, ;Do you work with chemicals or radiation (i.e. x-rays)?No ;Are you on a special diet?No ;Do you have cats?No ;Have you had an influenza (flu) vaccine?No, D o you use tobacco?No ;Do you drink alcoholic beverages?No ;Please list any medications taken since your last period, including awpl-bdc-jarnkjq medications:spironlactone 100mg vitamin D 5000ius, ;Please list any drugs used in the past(i.e. cocaine,marijuana,pain medication, meth, etc.):none, ;Do you have a history of blood transfusion, intravenous drug use, multiple sexual partners or sexual exposure to a falcon or bi-sexual male, exposure to an intravenous drug user, or have any other reason to believe you may have been exposed to AIDS?none, ;Do you work with chemicals or radiation (i.e. x-rays)?No ;Are you on a special diet?No ;Do you have cats?No ;Have you had an influenza (flu) vaccine?No. D rug/Alcohol: D rugs H ave you used drugs other than those for medical reasons in the past 12 months??No. A lcohol Use D o you drink? N o. O B Social History: Makayla hayward list any medications taken since your last period, including over the counter medications: spironlactone 100mg vitamin D 5000ius. Do you work with chemicals or radiation?: No. Are you on a special diet?: No. Do you have cats?: No. Have you had an influenza (flu) vaccine?: No. Do you have any reason to believe you may have been exposed to AIDS?: No. * Medications: T akingNP Thyroid 30 MG Tablet 1 PO QAM Oral GNP Vitamin D Super Strength 5000 UNIT Tablet 1 PO daily Oral , Notes to Pharmacist: *[facility] for eRX*testosterone 2.25 mg SUBLINGUAL MAKENZIE MAKENZIE 1 SL daily SUBLINGUAL , Notes to Pharmacist: *Reorder from [facility] for eRx and Interaction Alerts*Taking PERCUSSION TUNER Thyroid 30 MG Tablet 1 PO QAM Oral Taking GNP Vitamin D Super Strength 5000 UNIT Tablet 1 PO daily Oral , Notes to Pharmacist: *Pick strength-form from [employer] for eRX*Taking testosterone 2.25 mg SUBLINGUAL MAKENZIE MAKENZIE 1 SL daily SUBLINGUAL , Notes to Pharmacist: *Reorder from [facility] for eRx and Interaction Alerts* Objective: * Vitals: * Physical Examination: Assessment: Plan: * Treatment: * Procedure Codes: * * Date:
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
== END 2025-04-24 13:26 | disposition home or self-care (01) ==
LOC: HO.HOP 13:08
PROVIDERS: Visit Provider Counselor Mental Health
DX: F43.22 Adjustment disorder with anxiety (principal); Z63.0 Problems in relationship with spouse or partner
CPT/HCPCS: 90837

== ENCOUNTER 2025-05-15 11:39 | Outpatient (AMB) | payer BC, SELFPAY ==
--- OUTSIDE RECORDS SUMMARY | 2024-07-23 05:00 | XMS_ITS ---
Author Organization [employer] Address [address] [facility] [address] [place] [address] Care Team Providers Care Integrated Circuit Design Engineer Name Role Phone Migration, Provider Unavailable Unavailable REASON FOR VISIT [place] [place] Medication SIG (Take, Route, Frequency, Duration) Notes Start Date End Date Status GNP Vitamin D Super Strength 5000 UNIT 1 PO daily Oral *Pick strength-form from [employer] for eRX* 12/17/2016 Active testosterone 2.25 mg SUBLINGUAL MAKENZIE 1 SL daily SUBLINGUAL *Reorder from [employer] for eRx and Interaction Alerts* 12/17/2016 Active CARPENTRY SUPERVISOR Thyroid 30 MG 1 PO QAM Oral 12/17/2016 Active Encounters Encounter Location Date Provider Diagnosis [facility] [address] [facility] [address] [place], [place] [phone] 07/23/2024 Provider Migration Plan Of Treatment No Information Progress Notes * Nimo GARCIADOB: 0 (44 yo F)Acc No.[id number]:07/23/2024 Patient: Nimo RITTER :1980 A ge:43 Y S ex:Female [address], [address] Subjective: * Chief Complaints: * E MR-Chacho * Medical History: * 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 * Surgical History: * Hospitalization/Major Diagno stic Procedure: * Family History: M igrated Family History: : Cancer: pts grandpa, Diabetes: none, SENIOR SOFTWARE SYSTEMS ENGINEER Problems: none, Heart Disease: pts grandma, Hyperlipidemia: [...] medications taken since your last period, including cjua-ljn-svqawik medications:spironlactone 100mg vitamin D 5000ius , ;Please [...] medications taken since your last period, including vblb-jec-yhubpbl medications:spironlactone 100mg vitamin D 5000ius, ;Please list [...] , Notes to Pharmacist: *Pick strength-[facility] from [facility] for eRX*testosterone 2.25 mg SUBLINGUAL MAKENZIE MAKENZIE 1 SL daily SUBLINGUAL , Notes to Pharmacist: *Reorder from [facility] for eRx and Interaction Alerts*Taking CARPENTRY SUPERVISOR Thyroid 30 MG Tablet 1 PO QAM Oral Taking GNP Vitamin D Super Strength 5000 UNIT Tablet 1 PO daily Oral , Notes to Pharmacist: *Pick strength-form from [employer] for eRX*Taking testosterone 2.25 mg SUBLINGUAL MAKENZIE MAKNEZIE 1 SL daily SUBLINGUAL , Notes to Pharmacist: *Reorder from [facility] for eRx and Interaction Alerts* Objective: * Vitals: * Physical Examination: Assessment: Plan: * Treatment: * Procedure Codes: * * Date:
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
== END 2025-05-15 12:28 | disposition home or self-care (01) ==
LOC: HO.HOP 11:39
PROVIDERS: Visit Provider Counselor Mental Health
DX: F43.22 Adjustment disorder with anxiety (principal); Z63.0 Problems in relationship with spouse or partner
CPT/HCPCS: 90834

== ENCOUNTER 2025-06-01 11:15 | Outpatient (AMB) | payer BC, SELFPAY ==
--- OUTSIDE RECORDS SUMMARY | 2024-07-23 05:00 | XMS_ITS ---
Author Organization [employer] Address [address] [facility] [address] [place] [address] Care Team Providers Care Vp Security Name Role Phone Migration, Provider Unavailable Unavailable REASON FOR VISIT EMR-[facility] [place] Medications Medication SIG (Take, Route, Frequency, Duration) Notes Start Date End Date Status GNP Vitamin D Super Strength 5000 UNIT 1 PO daily Oral *Pick strength-form from [employer] for eRX* 12/17/2016 Active testosterone 2.25 mg SUBLINGUAL MAKENZIE 1 SL daily SUBLINGUAL *Reorder from [employer] for eRx and Interaction Alerts* 12/17/2016 Active ENTERPRISE MANAGER Thyroid 30 MG 1 PO QAM Oral 12/17/2016 Active Encounters Encounter Location Date Provider Diagnosis [facility] [address] [facility] [address] [place], [place] [phone] 07/23/2024 Provider Migration Plan Of Treatment No Information Progress Notes * Nimo GARCIADOB: 0 (44 yo F)Acc No.[id number]:07/23/2024 Patient: Nimo RITTER :1980 A ge:43 Y S ex:Female Address:[address], [address] Subjective: * Chief Complaints: * E MR-Chacho * 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 * Surgical History: * Hospitalization/Major Diagno stic Procedure: * Family History: M igrated Family History: : Cancer: pts grandpa, Diabetes: none, APPLICATION INTEGRATION SPECIALIST Problems: none, Heart Disease: pts grandma, Hyperlipidemia: [...] medications taken since your last period, including tfxc-yrf-wsbxtyp medications:spironlactone 100mg vitamin D 5000ius , ;Please [...] medications taken since your last period, including dgbf-ckr-ljjxvin medications:spironlactone 100mg vitamin D 5000ius, ;Please list [...] , Notes to Pharmacist: *[facility] from [facility] for eRX*testosterone 2.25 mg SUBLINGUAL MAKENZIE MAKENZIE 1 SL daily SUBLINGUAL , Notes to Pharmacist: *Reorder from [facility] for eRx and Interaction Alerts*Taking ENTERPRISE MANAGER Thyroid 30 MG Tablet 1 PO QAM Oral Taking GNP Vitamin D Super Strength 5000 UNIT Tablet 1 PO daily Oral , Notes to Pharmacist: *Pick strength-form from [employer] for eRX*Taking testosterone 2.25 mg SUBLINGUAL MAKENZIE MAKENZIE 1 SL daily SUBLINGUAL , Notes to Pharmacist: *Reorder from [facility] for eRx and Interaction Alerts* Objective: * Vitals: * Physical Examination: Assessment: Plan: * Treatment: * Procedure Codes: * * Date:
--- NOTE | 2025-06-01 11:26 | A.OFFWM_ITS ---
Intake Intake Visit Reasons: OV OP Therapy Behavioral Health Assessment Weight Management Therapy Therapy Notes Details Subjective: The patient reports experiencing significant stress and has had episodes of low blood pressure during periods of heightened anxiety. She shared that her arranged for a provider to mediate and deliver news to their children, despite previously declining her offers for mediation. The patient has also noticed recent weight gain, hormonal changes, and acne, which she attributes to stress. She is considering consulting an natural gas shothole driller for further evaluation and support. Objective: The patient presented in person for a behavioral health follow-up appointment. During the session, we focused on identifying early warning signs of anxiety and stress, particularly in relation to her recent episodes of physiological deregulation, such as low blood pressure. Interventions included psychoeducation on the mind-body connection and the impact of chronic stress on physical health, including hormonal changes and weight fluctuations. We practiced grounding techniques and slow, controlled breathing exercises to help manage acute anxiety symptoms. The patient was encouraged to develop a personalized self-monitoring plan to track physical and emotional symptoms, which can help identify patterns and triggers. Assertiveness skills were reviewed, with an emphasis on setting and maintaining boundaries with her partner, especially in situations that may escalate conflict or emotional distress. We also discussed strategies for reducing unnecessary or unhelpful interactions and prioritizing self-care. Assessment/Response: * Mental status: She was alert, oriented, and engaged throughout the session. Her mood was anxious but she demonstrated good insight into her symptoms and stressors. Thought processes were logical and coherent, with no evidence of psychosis, suicidal, or homicidal ideation. The patient was receptive to interventions and motivated to implement new coping strategies.? * Risk reported/identified: None. Assessment & Plan Assessment & Plan (1) Adjustment disorder with anxiety: Code(s): F43.22 - Adjustment disorder with anxiety (2) Problems in relationship with spouse or partner: Code(s): Z63.0 - Problems in relationship with spouse or partner Plan Recommended to consult with a provider specialized in women's health and mental health for support if she feels anxiety is impacting her functioning and medication could benefit her. We will follow up in 2 weeks, with the next appointment scheduled for 06/15 at 11am. Coding Level of Care Code Established Pt Psytx >53 mins (16176) Patient Type Established Diagnoses Adjustment disorder with anxiety F43.22 Problems in relationship with spouse or partner Z63.0 Time Spent (min) 60
== END 2025-06-01 13:11 | disposition home or self-care (01) ==
LOC: HO.HOP 11:16
PROVIDERS: Visit Provider Counselor Mental Health
DX: F43.22 Adjustment disorder with anxiety (principal); Z63.0 Problems in relationship with spouse or partner
CPT/HCPCS: 90837

== ENCOUNTER 2025-06-15 11:27 | Outpatient (AMB) | payer BC, SELFPAY ==
--- OUTSIDE RECORDS SUMMARY | 2024-07-23 05:00 | XMS_ITS ---
Author Organization [employer] Address [address] [place] [address] Care Team Providers Care Stripper Soft Plastic Name Role Phone Migration, Provider Unavailable Unavailable REASON FOR VISIT [place] [place]ations Medication SIG (Take, Route, Frequency, Duration) Notes Start Date End Date Status GNP Vitamin D Super Strength 5000 UNIT 1 PO daily Oral *Pick strength-form from [employer] for eRX* 12/17/2016 Active testosterone 2.25 mg SUBLINGUAL MAKENZIE 1 SL daily SUBLINGUAL *Reorder from [employer] for eRx and Interaction Alerts* 12/17/2016 Active VISUAL DISPLAY MANAGER Thyroid 30 MG 1 PO QAM Oral 12/17/2016 Active Encounters Encounter Location Date Provider Diagnosis [facility] [address] [facility] [address] [place], [place] [phone] 07/23/2024 Provider Migration Plan Of Treatment No Information Progress Notes * Nimo GARCIADOB: 0 (44 yo F)Acc No.[id number]:07/23/2024 Patient: Nimo RITTER :1980 A ge:43 Y S ex:Female Address:[address], [address] Subjective: * Chief Complaints: * E MR-Chacho * Medical History: * Rn Stars History: L ast PAP smear date: L [...] 01/19/2011 GA Weeks: 37 Sex: M Weight(lbs): 1ymc4we Delivery Type: OB Problems: none Problems: healthy Living: Yes, P regnancy Date: 08/16/2015 GA Weeks: 37 Sex: M Weight(lbs): 4hls94ko Delivery Type: OB Problems: none Problems: healthy Living: Yes . * Surgical History: * Hospitalization/Major Diagno stic Procedure: * Family History: M igrated Family History: : Cancer: pts grandpa, Diabetes: none, SPARKER AND PATCHER Problems: none, Heart Disease: pts grandma, Hyperlipidemia: [...] medications taken since your last period, including ajpy-syh-yynkybc medications:spironlactone 100mg vitamin D 5000ius , ;Please [...] medications taken since your last period, including evku-rco-ejddodv medications:spironlactone 100mg vitamin D 5000ius, ;Please list [...] , Notes to Pharmacist: *Pick strength-form from [facility] for eRX*testosterone 2.25 mg SUBLINGUAL MAKENZIE MAKENZIE 1 SL daily SUBLINGUAL , Notes to Pharmacist: *Reorder from [facility] for eRx and Interaction Alerts*Taking VISUAL DISPLAY MANAGER Thyroid 30 MG Tablet 1 PO QAM Oral Taking GNP Vitamin D Super Strength 5000 UNIT Tablet 1 PO daily Oral , Notes to Pharmacist: *Pick strength-form from [employer] for eRX*Taking testosterone 2.25 mg SUBLINGUAL MAKENZIE MAKENZIE 1 SL daily SUBLINGUAL , Notes to Pharmacist: *Reorder from [facility] for eRx and Interaction Alerts* Objective: * Vitals: * Physical Examination: Assessment: Plan: * Treatment: * Procedure Codes: * * Date:
--- NOTE | 2025-06-15 11:15 | A.OFFWM_ITS ---
Intake Intake Visit Reasons: OV OP Therapy Behavioral Health Assessment Weight Management Therapy Therapy Notes Details Subjective: Patient reports she will begin Cosmetology classes (facials and massages) next week, attending daily Wednesday through Wednesday from 9:00 AM to 2:00 PM. She will also attend Bengali classes two evenings per week. Patient states that things at home are currently calm as her is working out of town, but she continues to experience tension and reports difficulty sleeping. Objective: PT presents for a session via Telehealth. Interventions provided during session: -Supportive counseling to validate patient?s experiences and encourage expression of feelings. -Psychoeducation on sleep hygiene strategies (e.g., establishing a bedtime routine, limiting screen time before bed, relaxation techniques). -Explored coping skills for managing anxiety and stress related to upcoming schedule changes. -Encouraged patient to utilize available support systems and maintain self- care practices. -Reviewed safety plan and emergency contacts. Assessment/Response: * Mental status: Patient is anxious but able to participate in session and demonstrate insight into her stressors. * Risk reported/identified: No current suicidal or homicidal ideation. Ongoing risk related to adjustment to new routines and underlying tension at home.Plan: Assessment & Plan Assessment & Plan (1) Adjustment disorder with anxiety: Code(s): F43.22 - Adjustment disorder with anxiety (2) Problems in relationship with spouse or partner: Code(s): Z63.0 - Problems in relationship with spouse or partner Plan PT quested a F/up in 1 month due to busy schedule Continue to monitor mood, sleep, and adjustment to new activities. Reinforce use of coping strategies and sleep hygiene techniques. Patient encouraged to reach out if symptoms worsen or if additional support is needed before next scheduled session. * Next christiano: 07/13/2025 at 2pm, via Telehealth. Telehealth Telehealth Telehealth Platform: [employer] Location of provider rendering services: practice address Location of patient: address on file Patient Identification confirmed using: Name, : Yes Telehealth method: video Patient verbally consented to treatment: Yes Patient verbally consented to billing insurance company: Yes Patient informed of any privacy concerns related to visit: Yes Minutes spent on Phone/Video with Pt.: 45 Coding Level of Care Code Established Pt Tele Psytx 45 mins ([id number]) Patient Type Established Diagnoses Adjustment disorder with anxiety F43.22 Problems in relationship with spouse or partner Z63.0 Time Spent (min) 45
== END 2025-06-15 12:19 | disposition home or self-care (01) ==
LOC: HO.HOP 11:27
PROVIDERS: Visit Provider Counselor Mental Health
DX: F43.22 Adjustment disorder with anxiety (principal); Z63.0 Problems in relationship with spouse or partner
CPT/HCPCS: 90834

== ENCOUNTER 2025-07-27 13:33 | Outpatient (AMB) | payer BC, SELFPAY ==
--- OUTSIDE RECORDS SUMMARY | 2024-07-22 05:00 | XMS_ITS ---
Author Organization [employer] Address [address] [facility] [address] [place] [address] Care Team Providers Care Machine I Coremaker Name Role Phone Migration, Provider Unavailable Unavailable REASON FOR VISIT EMR-Chacho Encounters Encounter Location Date Provider Diagnosis [place] [id number] [facility] [address] [place], [place] [id number] 07/22/2024 Provider Migration Plan Of Treatment Medication Medication Name Sig Start Date Stop Date Notes Prometrium 200 MG insert 1 capsule by vaginal route every day for 3 months at bedtime Oral 01/27/2017 04/26/2017 Progress Notes * Nimo GARCIADOB: 0 (44 yo F)Acc No.[id number]:07/22/2024 Patient: Nimo RITTER :1980 A ge:43 Y S ex:Female Address:[address], [place] [address] * Refills Stop Prometrium Capsule, 200 MG, Oral, 30, insert 1 capsule by vaginal route every day for 3 months at bedtime Subjective: * Chief Complaints: * E MR-Chacho * Medical History: * Surgical History: * Hospitalization/Major Diagno stic Procedure: * Medications: Objective: * Vitals: * Physical Examination: Assessment: Plan: * Treatment: * Procedure Codes: * * Date:
--- OUTSIDE RECORDS SUMMARY | 2024-07-23 05:00 | XMS_ITS ---
Author Organization [employer] Address [address] [place] [address] Care Team Providers Care Door Tender Name Role Phone Migration, Provider Unavailable Unavailable REASON FOR VISIT EMR-[facility] [place] Medications Medication SIG (Take, Route, Frequency, Duration) Notes Start Date End Date Status GNP Vitamin D Super Strength 5000 UNIT 1 PO daily Oral *Pick strength-form from [employer] for eRX* 12/17/2016 Active testosterone 2.25 mg SUBLINGUAL MAKENZIE 1 SL daily SUBLINGUAL *Reorder from [employer] for eRx and Interaction Alerts* 12/17/2016 Active FISHER LINE Thyroid 30 MG 1 PO QAM Oral 12/17/2016 Active Encounters Encounter Location Date Provider Diagnosis [facility] [address] [facility] [address] [place], [place] [phone] 07/23/2024 Provider Migration Plan Of Treatment No Information Progress Notes * Nimo GARCIADOB: 0 (44 yo F)Acc No.[id number]:07/23/2024 Patient: Nimo RITTER :1980 A ge:43 Y S ex:Female [address], [address] Subjective: * Chief Complaints: * E MR-Chacho * Medical History: * 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 C ytology result: n ormal per pt. I nfertility N o. P AP History H ave you ever had an abnormal Pap Smear?:Yes. Gardasil N o. B ladder or Kidney Infection H ave you had bladder or kidney infections? N o. * OB History: [place] funes Authorization : : Date: 01/19/2011 GA Weeks: 37 Sex: M Weight(lbs): 7kxl9hj Delivery Type: OB Problems: none Problems: healthy Living: Yes, P regnancy Date: 08/16/2015 GA Weeks: 37 Sex: M Weight(lbs): 1pzt16yg Delivery Type: OB Problems: none Problems: healthy Living: Yes . * Surgical History: * Hospitalization/Major Diagno stic Procedure: * Family History: M igrated Family History: : Cancer: pts grandpa, Diabetes: none, SUPERVISOR BRIAR SHOP Problems: none, Heart Disease: pts grandma, Hyperlipidemia: [...] medications taken since your last period, including uxhf-dze-mruarlc medications:spironlactone 100mg vitamin D 5000ius , ;Please [...] medications taken since your last period, including anav-its-nckzfdd medications:spironlactone 100mg vitamin D 5000ius, ;Please list [...] , Notes to Pharmacist: *[facility] strength-[facility] from [facility] for eRX*testosterone 2.25 mg SUBLINGUAL MAKENZIE MAKENZIE 1 SL daily SUBLINGUAL , Notes to Pharmacist: *Reorder from [facility] for eRx and Interaction Alerts*Taking FISHER LINE Thyroid 30 MG Tablet 1 PO QAM Oral Taking GNP Vitamin D Super Strength 5000 UNIT Tablet 1 PO daily Oral , Notes to Pharmacist: *Pick strength-form from [employer] for eRX*Taking testosterone 2.25 mg SUBLINGUAL MAKENZIE MAKENZIE 1 SL daily SUBLINGUAL , Notes to Pharmacist: *Reorder from [employer] for eRx and Interaction Alerts* Objective: * Vitals: * Physical Examination: Assessment: Plan: * Treatment: * Procedure Codes: * * Date:
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
--- OUTSIDE RECORDS SUMMARY | 2025-07-27 13:50 | XMS_ITS | Patient Health Record ---
Author Organization [facility] Address [address] [place] [address] Support Name Relationship Address Phone Nimo Desai Guarantor Unknown [phone] Reason For Referral No Information Medications Medication SIG (Take, Route, Frequency, Duration) Notes Start Date End Date Status GNP Vitamin D Super Strength 5000 UNIT 1 PO daily Oral *Pick strength-form from [facility] for eRX* 12/17/2016 Active testosterone 2.25 mg SUBLINGUAL MAKENZIE 1 SL daily SUBLINGUAL *Reorder from [facility] for eRx and Interaction Alerts* 12/17/2016 Active [employer] Thyroid 30 MG 1 PO QAM Oral 12/17/2016 Active Plan Of Treatment No Information Insurance Providers Payer Name Payer Address Payer Phone Subscriber Number Group Number Insured Name Patient Relationship to Insured Coverage Start Date Coverage End Date [employer] [address] [place], [place] [id number] Nimo Desai Self - patient is the insured 5
== END 2025-07-27 15:01 | disposition home or self-care (01) ==
LOC: HO.HBST 13:33
PROVIDERS: Visit Provider Counselor Mental Health
DX: F43.22 Adjustment disorder with anxiety (principal); Z63.0 Problems in relationship with spouse or partner
CPT/HCPCS: 90837

== ENCOUNTER 2025-08-10 14:11 | Outpatient (AMB) | payer BC, SELFPAY ==
--- NOTE | 2025-08-10 14:05 | A.OFFWM_ITS ---
Intake Intake Visit Reasons: VIDEO OP Therapy Behavioral Health Assessment Weight Management Therapy Therapy Notes Details Subjective: The patient reports increased stress related to challenging home dynamics and financial strain, as her has reduced the household food budget. She is currently in school and participating in [employer], which has heightened her anxiety and stress, particularly as she must request resources from her , leading to tension and verbal conflict. She anticipates that her aunt?s upcoming visit will provide emotional support. Additionally, she has contacted her health care attorney to request an earlier appointment in hopes of expediting her legal process. Objective: Patient presented for a follow-up behavioral health visit via telehealth. She appeared appropriately groomed and engaged throughout the session. Discussed current functioning in academic, home, and interpersonal domains. Interventions provided during the session included: * Psychoeducation on stress management and coping strategies * Supportive counseling to validate patient?s experiences and emotions * Problem-solving techniques to address communication challenges with her * Safety planning and discussion of available community resources for food insecurity * Encouraged use of social supports, including anticipated support from her aunt. Assessment/Response: * Mental status: Alert and oriented x3. Mood described as anxious and stressed. Affect congruent with mood. Thought process logical and goal-directed. No evidence of psychosis or cognitive impairment. * Risk reported/identified: Denies suicidal or homicidal ideation, intent, or plan. No acute safety concerns identified at this time. Patient reports increased stress but is utilizing coping skills and seeking support. Assessment & Plan Assessment & Plan (1) Adjustment disorder with anxiety: Code(s): F43.22 - Adjustment disorder with anxiety (2) Problems in relationship with spouse or partner: Code(s): Z63.0 - Problems in relationship with spouse or partner Plan The patient will continue with bi-weekly behavioral health sessions to provide ongoing support and monitor her progress. During these sessions, coping strategies will be reinforced, and any changes in mood or risk will be closely observed. Resources for food assistance will be offered if her situation requires additional support. She will be encouraged to maintain communication with her certified alcohol and drug counselor and to utilize available social supports, including her aunt?s anticipated involvement. * The next appointment is scheduled for August 24, 2025, at 2:00 PM via video. Telehealth Telehealth Telehealth Platform: [facility] Location of provider rendering services: practice address Location of patient: address on file Patient Identification confirmed using: Name, : Yes Telehealth method: video Patient verbally consented to treatment: Yes Patient verbally consented to billing insurance company: Yes Patient informed of any privacy concerns related to visit: Yes Minutes spent on Phone/Video with Pt.: 55 [place] [address] Tele Psytx >53 mins Patient Type Established Diagnoses Adjustment disorder with anxiety F43.22 Problems in relationship with spouse or partner Z63.0 Time Spent (min) 55
== END 2025-08-10 15:17 | disposition home or self-care (01) ==
LOC: HO.HBST 14:11
PROVIDERS: Visit Provider Counselor Mental Health
DX: F43.22 Adjustment disorder with anxiety (principal); Z63.0 Problems in relationship with spouse or partner
CPT/HCPCS: 90837

== ENCOUNTER 2025-08-24 14:17 | Outpatient (AMB) | payer BC, SELFPAY ==
--- OUTSIDE RECORDS SUMMARY | 2024-07-22 05:00 | XMS_ITS ---
Author Organization [employer] Address [address] [facility] [address] [place] [address] Care Team Providers Care Industrial Electrical Engineer Name Role Phone Migration, Provider Unavailable Unavailable REASON FOR VISIT EMR-Chacho Encounters Encounter Location Date Provider Diagnosis [place] [id number] [facility] [address] [place], [place] [id number] 07/22/2024 Provider Migration Plan Of Treatment Medication Medication Name Sig Start Date Stop Date Notes Prometrium 200 MG insert 1 capsule by vaginal route every day for 3 months at bedtime Oral 01/27/2017 04/26/2017 Progress Notes * Nimo GARCIADOB: 0 (44 yo F)Acc No.[id number]:07/22/2024 Patient: Nimo RITTER :1980 A ge:43 Y S ex:Female Address:[address], [place] [address] * Refills Stop Prometrium Capsule, 200 MG, [...]
--- OUTSIDE RECORDS SUMMARY | 2024-07-23 05:00 | XMS_ITS ---
Author Organization [employer] Address [address] [facility] [address] [place] [address] Care Team Providers Care Tray Casting Machine Operator Name Role Phone Migration, Provider Unavailable Unavailable REASON FOR VISIT EMR-[facility] [place] Medications Medication SIG (Take, Route, Frequency, Duration) Notes Start Date End Date Status GNP Vitamin D Super Strength 5000 UNIT 1 PO daily Oral *Pick strength-form from [employer] for eRX* 12/17/2016 Active testosterone 2.25 mg SUBLINGUAL MAKENZIE 1 SL daily SUBLINGUAL *Reorder from [employer] for eRx and Interaction Alerts* 12/17/2016 Active CLIENT SERVICES ANALYST Thyroid 30 MG 1 PO QAM Oral 12/17/2016 Active Encounters Encounter Location Date Provider Diagnosis [facility] [address] [facility] [address] [place], [place] [phone] 07/23/2024 Provider Migration Plan Of Treatment No Information Progress Notes * Nimo GARCIADOB: 0 (44 yo F)Acc No.[id number]:07/23/2024 Patient: Nimo RITTER :1980 A ge:43 Y S ex:Female [address], [address] Subjective: * Chief Complaints: * E MR-Chacho * 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 * Surgical History: * Hospitalization/Major Diagno stic Procedure: * Family History: M igrated Family History: : Cancer: pts grandpa, Diabetes: none, BLANKET BINDER Problems: none, Heart Disease: pts grandma, Hyperlipidemia: [...] medications taken since your last period, including eckl-boc-uurzsmy medications:spironlactone 100mg vitamin D 5000ius , ;Please [...] medications taken since your last period, including vnlc-reo-isypfea medications:spironlactone 100mg vitamin D 5000ius, ;Please list [...] , Notes to Pharmacist: *[facility] for [facility]*testosterone 2.25 mg SUBLINGUAL MAKENZIE MAKENZIE 1 SL daily SUBLINGUAL , Notes to Pharmacist: *Reorder from [facility] for eRx and Interaction Alerts*Taking CLIENT SERVICES ANALYST Thyroid 30 MG Tablet 1 PO QAM Oral Taking GNP Vitamin D Super Strength 5000 UNIT Tablet 1 PO daily Oral , Notes to Pharmacist: *Pick strength-form from [employer] for eRX*Taking testosterone 2.25 mg SUBLINGUAL MAKENZIE MAKENZIE 1 SL daily SUBLINGUAL , Notes to Pharmacist: *Reorder from [employer] for eRx and Interaction Alerts* Objective: * Vitals: * Physical Examination: Assessment: Plan: * Treatment: * Procedure Codes: * * Date:
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
--- OUTSIDE RECORDS SUMMARY | 2025-08-24 14:56 | XMS_ITS | Patient Health Record ---
Author Organization [employer] Address [address] [place] [address] Support Name Relationship Address Phone Nimo Desai Guarantor Unknown [phone] Reason For Referral No Information Medications Medication SIG (Take, Route, Frequency, Duration) Notes Start Date End Date Status GNP Vitamin D Super Strength 5000 UNIT 1 PO daily Oral *Pick strength-form from [employer] for eRX* 12/17/2016 Active testosterone 2.25 mg SUBLINGUAL MAKENZIE 1 SL daily SUBLINGUAL *Reorder from [employer] for eRx and Interaction Alerts* 12/17/2016 Active [employer] Thyroid 30 MG 1 PO QAM Oral 12/17/2016 Active Plan Of Treatment No Information Insurance Providers Payer Name Payer Address Payer Phone Subscriber Number Group Number Insured Name Patient Relationship to Insured Coverage Start Date Coverage End Date [employer] [address] [place], [place] [id number] Nimo Desai Self - patient is the insured 5
== END 2025-08-27 09:44 | disposition home or self-care (01) ==
LOC: HO.HOP 14:17
PROVIDERS: Visit Provider Counselor Mental Health
DX: F43.22 Adjustment disorder with anxiety (principal); Z63.0 Problems in relationship with spouse or partner
CPT/HCPCS: 90837